=== PATIENT | male | born 1975 ===

== ENCOUNTER 2017-12-05 08:22 | Inpatient (IN) | payer MEDICAID ==
[2017-12-05 08:36] VITALS: BMI 39.1
[2017-12-05 09:06] LABS: BASO % 0.8 % (0.0-2.0); EOS # 0.1 K/uL (0.0-0.7); EOS % 1.5 % (0.0-4.0); HEMOGLOBIN 15.2 g/dL (12.0-18.0); LYMPH # 2.2 K/uL (1.0-4.3); LYMPH % 44.2 % (20.0-40.0); MEAN CELL VOLUME 91.7 fL (80.0-94.0); MEAN CORPUSCULAR HEMOGLOBIN 31.6 pg (27.0-31.0); MEAN CORPUSCULAR HGB CONC 34.4 g/dL (33.0-37.0); MONO # 0.4 K/uL (0.0-0.8); MONO % 8.6 % (0.0-10.0); NEUT # 2.3 K/uL (1.8-7.0); NEUT % 44.9 % (50.0-75.0); NRBC % 0.2 % (0.0-2.0); RBC 4.8 Mil/uL (4.40-5.90); RED CELL DISTRIBUTION WIDTH 13.1 % (11.5-14.5)
[2017-12-05 09:16] LABS: ALB/GLOB RATIO 1.1 (1.0-2.1); ALBUMIN 3.9 g/dL (3.5-5.0); ALT/SGPT 35 U/L (21-72); AST/SGOT 26 U/L (17-59); BLOOD UREA NITROGEN 12 mg/dL (9-20); GFR AFRICAN-AMERICAN > 60; GFR NON-AFRICAN AMERICAN > 60
[2017-12-05 09:41] LABS: SQUAMOUS EPITHIAL < 1 /hpf (0-5); URINE BILIRUBIN NEGATIVE (NEGATIVE); URINE BLOOD NEGATIVE (NEGATIVE); URINE CLARITY Clear (Clear); URINE COLOR Yellow (YELLOW); URINE GLUCOSE (UA) NORMAL (Normal); URINE LEUKOCYTE ESTERASE NEG Leu/uL (Negative); URINE PROTEIN NEGATIVE (NEGATIVE); URINE UROBILINOGEN NORMAL mg/dL (0.2-1.0)
--- NOTE | 2017-12-05 09:43 | C.PDOC ---
History Of Present Illness 42-year-old male, presents to the emergency department with complaints of non- traumatic achEy pain to bilateral lower extremities, as well as feeling depressed with suicidal ideations - denies specific plan. Patient admits to history of alcohol abuse. Denies HI or other physical complaints. Time Seen by Provider: 12/05/17 08:26 Chief Complaint (Nursing): Psychiatric Evaluation History Per: Patient History/Exam Limitations: no limitations Current Symptoms Are (Timing): Still Present Modifying Factor(s): Alcohol Associated Symptoms: Depression, Suicidal Thoughts. denies: Suicidal Plan Involuntary Hold By: Emergency Physician Past Medical History Reviewed: Historical Data, Nursing Documentation, Vital Signs Vital Signs: Last Vital Signs Temp 98.1 F 12/08/17 06:39 Pulse 91 H 12/08/17 06:39 Resp 18 12/08/17 06:39 BP 112/75 12/08/17 06:39 Pulse Ox 99 12/08/17 09:05 - Medical History PMH: Anxiety, Asthma, Bipolar Disorder, Depression, HTN, Hypercholesterolemia, Paranoia, Schizophrenia - [facility] Procedures INDIVID PSYCHOTHERAP NEC (03/04/14) INDIVIDUAL PSYCHOTHERAPY, SUPPORTIVE (06/27/17) INJECT/INFUSE NEC (03/31/13) NEBULIZER THERAPY (03/31/13) OTHER GROUP THERAPY (02/01/14) Family History: States: No Known Family Hx - Social History Hx Tobacco Use: No Hx Alcohol Use: No Hx Substance Use: No - Immunization History Hx Tetanus Toxoid Vaccination: No Hx Influenza Vaccination: No Hx Pneumococcal Vaccination: No Review Of Systems Constitutional: Negative for: Fever, Chills Cardiovascular: Negative for: Chest Pain, Palpitations Respiratory: Negative for: Cough, Shortness of Breath Gastrointestinal: Negative for: Nausea, Vomiting, Abdominal Pain, Diarrhea Musculoskeletal: Positive for: Leg Pain Neurological: Negative for: Weakness, Numbness, Headache Psych: Positive for: Depression, Suicidal ideation Physical Exam - Physical Exam Appears: Well, Non-toxic, No Acute Distress, Other (flat affect) Skin: Normal Color, Warm, Dry, No Rash Head: Atraumatic, Normacephalic Eye(s): bilateral: Normal Inspection Oral Mucosa: Moist Neck: Normal, Normal ROM Chest: Symmetrical Cardiovascular: Rhythm Regular Respiratory: Normal Breath Sounds, No Rales, No Rhonchi, No Wheezing Extremity: Normal ROM, No Pedal Edema, No Calf Tenderness, No Deformity, No Swelling Extremity: Bilateral: Atraumatic, Normal Color And Temperature, Normal ROM Pulses: Left Dorsalis Pedis: Normal, Right Dorsalis Pedis: Normal Neurological/Psych: Oriented x3 ED Course And Treatment - Laboratory Results Result Diagrams: 12/05/17 08:58 12/05/17 08:58 O2 Sat by Pulse Oximetry: 99 (RA) Pulse Ox Interpretation: Normal Progress Note: Blood work, UA, UDS ordered and reviewed. 9:40am- Patient is calm and cooperative, expressed thoughts of hurting himself but without specific plan. Will d/c 1:1 observation at this time. 10:30am- Patient medically cleared. 10:40am- Patient accepted by Dr. Mcclain for psychiatric admission - bipolar disorder. Disposition - Disposition Disposition: HOSPITALIZED Disposition Time: 10:40 Condition: STABLE - Clinical Impression Clinical Impression: Bipolar disorder - Scribe Statement The provider has reviewed the documentation as recorded by the Scribe (Brenda Gonzalez) All medical record entries made by the Scribe were at my direction and personally dictated by me. I have reviewed the chart and agree that the record accurately reflects my personal performance of the history, physical exam, medical decision making, and the department course for this patient. I have also personally directed, reviewed, and agree with the discharge instructions and disposition. Decision To Admit - Pt Status Changed To: Hospital Disposition Of: Inpatient - Admit Certification Admit to Inpatient:: After my assessment, the patient will require hospitalization for at least two midnights. This is because of the severity of symptoms shown, intensity of services needed, and/or the medical risk in this patient being treated as an outpatient. - InPatient: Physician Admission Certification: I certify that this patient requires 2 or more midnights of care for the following reason:: see notes - . Bed Request Type: Psychiatry Admitting Physician: Mook Mcclain Patient Diagnosis: Bipolar disorder
[2017-12-05 10:11] LABS: BARBITURATES, UR NEGATIVE (NEGATIVE); BENZODIAZEPINES, UR NEGATIVE (NEGATIVE); OPIATES, UR NEGATIVE (NEGATIVE); PHENCYCLIDINE, UR NEGATIVE (NEGATIVE)
--- NOTE | 2017-12-05 12:32 | PCM.BM ---
<Candis Faustn - Last Filed: 12/05/17 12:29> Treatment Plan Problems - Problems identified on initial assessmt Depression Date Initiated: 12/05/17 Time Initiated: 12:29 Assessment reference: NA Status: Active Suicidal Ideation Date Initiated: 12/05/17 Time Initiated: 12:30 Assessment reference: NA Status: Monitor Treatment assets and liabiliti Patient Assests: cooperative, ADL independent, physically healthy, good support system, negotiates basic needs Patient Liabilities: live alone, financial problems, poor support system - Milieu Protocol Maintain good personal hygiene: daily Encourage regular showers, daily Remind patient to perform daily oral care, daily Assist patient to perform ADL's Conduct patient checks and document Observation sheet: Q15 minutes Maintain personal safety: every shift Educate patient to report safety concerns to staff, every shift Monitor environment for contraband/sharps Medication safety: Monitor for expected outcome, potential side effects: every shift, Assess barriers to learning: every shift, Assess readiness for medication education: every shift <Mook Mcclain - Last Filed: 12/06/17 11:28> - Diagnosis (1) Schizoaffective disorder Status: Acute Interventions: 12/06/17 11:28 * Assess/adjust medications daily and /or as needed * See patient on an individual basis 7x/week to assess status of hallucinations * Discuss risks, benefits, side effects and alternatives of medications * <Iva Barajas - Last Filed: 12/06/17 11:36> Family Contact Family involvement: Famliy/SO not involved - Goals for Treatment Patient goals for treatment: "I want to go back to [facility]" Discharge/Continuing Care - Education Needs Education Needs: Patient Medication, Patient Coping Skills - Discharge Discharge Criteria: Tolerates medication w/o severe side effects, Free of Suicidal thoughts, Reduction of target symptoms Discharge to:: Custodial - Treatment Team Participation Discussed with Family/SO: No Was Patient/Family/SO present at Treatment Team Meeting: Yes
--- NOTE | 2017-12-05 13:33 | PCM.PSYCH ---
Initial Psychiatric Evaluation - Initial Psychiatric Evaluation Type of Admission: Voluntary Legal Status: Capacity Chief Complaint (in patient's own words): CC: "I'm depressed and suicidal" History of Present Illness and Precipitating Events: Patient is a 42 year old male with a history of Bipolar Disorder and Schizophrenia who presents with depression and suicidal ideation. Patient lives in a intermediate, and is single with no children. He is currently unemployed. Patient has had depression since age 14, and was diagnosed with Bipolar Disorder and Schizophrenia ten years ago. Patient reports feelings of depression , hopelessness, anxiety, insomnia, fatigue, irritability, racing thoughts, violent thoughts, auditory hallucinations (both male and female voices, telling patient to kill himself) and visual hallucinations (devils, demons) for the past month, and paranoia. Patient reports suicidal ideation, and states that he has a history of suicide attempts. He reports that his last psychiatric hospitalization was "5 to 6 years ago," when he was hospitalized following a suicide attempt with Trazodone, and before that, "7 to 8 years ago", following a suicide attempt with Amitriptyline. Prior to this most recent hospitalization , patient was having suicidal ideation and was planning on overdosing on Seroquel. Patient states he has a history of alcohol and cocaine use. Patient began using alcohol at age 14, and states that he drinks 1 pint of vodka/day, and 3 16oz beers/day. Patient began using cocaine at age 18, and uses 1-2grams/month. Patient began using crack cocaine in his twenties, and uses twice per week. Patient has also been using marijuana, infrequently, since age 17. PMH: Anxiety, Asthma, HTN, Hypercholesterolemia Past Psychiatric Hx: Bipolar Disorder, Schizophrenia Past Psychiatric History - Past Psychiatric History Previous Treatment History: Inpatient Pertinent Medical Hx (Current Medical&Sleep Prob, Allergies): Allergies Allergy/AdvReac Type Severity Reaction Status Date / Time divalproex sodium Allergy Verified 12/05/17 08:35 [From Depakote] haloperidol [From Haldol] Allergy Verified 12/05/17 08:35 haloperidol lactate Allergy Verified 12/05/17 08:35 [From Haldol] risperidone [From Risperdal] Allergy Verified 12/05/17 08:35 ziprasidone HCl [From Geodon] Allergy Verified 12/05/17 08:35 ziprasidone mesylate Allergy Verified 12/05/17 08:35 [From Geodon] QUEtiapine [Seroquel] 100 mg PO BIDHS tab 08/25/16 Benztropine [Cogentin] 1 mg PO HS #30 tab 07/04/17 Citalopram [celEXA] 20 mg PO DAILY #30 tab 07/04/17 [place] Carbonate [[place] Carbonate 150MG] 450 mg PO BID #60 cap 07/04/17 traZODone [Desyrel] 50 mg PO HS #30 tab 07/04/17 Review of Systems - Constitutional Constitutional: Weakness - Psychiatric Psychiatric: Abnormal Sleep Pattern, Anxiety, Auditory Hallucinations, Depression, Hallucinations, Hopelessness, Irritability, Paranoia, Suicidal Ideation, Visual Hallucinations Mental Status Examination - Personal Presentation Personal Presentation: Looks stated age - Affect Affect: Constricted, Depressed - Motor Activity Motor Activity: Calm - Reliability in Providing Information Reliability in Providing Information: Poor, due to alteration in thoughts, Poor , due to altered mood - Speech Speech: Disorganized - Mood Mood: Depressed, Anxious - Formal Thought Process Formal Thought Process: Hallucinations, Delusions, Loosening of associations, Circumstantial - Hallucinations/Delusions Hallucinations: Visual, Auditory Delusions: Persecution - Obsessions/Compulsions Obsessions: No Compulsions: No - Cognitive Functions Orientation: Person, Place, Situation, Time Sensorium: Alert Attention/Concentration: Attentive Abstract Thinking: [place] Estimate of Intelligence: Below average Judgement: Imparied, as evidence by: Poor judgement, Imparied, as evidence by: Lack of insight into illness Memory: Recent intact, as evidence by: Ability to recall events of the day, Remote intact, as evidenced by: Abilit to recall sig. life events - Risk Risk: Suicidal, Diminished functioning - Strength & Assets Inventory Strength & Assets Inventory: Family support, Cooperative DSM 5 DX - DSM 5 DSM 5 Diagnosis: Schizo affective disorder bipolar type - Recommended/Plan of Treatment Treatment Recommendations and Plan of Treatment: Schizo affective disorder bipolar type -CBT -Psychoeducation -Supportive therapy, group therapy, individual therapy -Celexa 20 mg daily -[place] 300 mg by mouth twice a day -Seroquel 100 mg by mouth daily at bedtime -Trazodone 50 mg by mouth daily at bedtime - Smoking Cessation Smoking Cessation Initiated: No
[2017-12-07] MEDS ORDERED: Pneumococcal 23-Valent Vaccine IM ONE (10:00)
--- NOTE | 2017-12-07 16:24 | PCM.PYCHPN ---
Psychiatric Progress Note - Psychiatric Progress Note Patient seen today, length of contact: 15 min Patient Chief Complaint: CC: "I'm depressed and suicidal" Problems Identified/Issues Discussed: Patient seen and evaluated, chart reviewed and discussed with the nurse. Patient remained disorganized and internally preoccupied. Patient remained isolated, confined and withdrawn. He still reports of hearing voices. Patient still appears paranoid and delusional. He reports depressed mood and feelings of hopelessness and helplessness. He is taking medication and denies any side effects. Supportive therapy and psychoeducation were given. Medication Change: Yes Medical Record Reviewed: Yes Mental Status Examination - Cognitive Function Orientation: Person, Place, Situation, Time Memory: Intact Attention: WNL Concentration: Poor Association: Loose Fund of Knowledge: Poor - Mood Mood: Depressed, Anxious - Affect Affect: Constricted, Depressed - Formal Thought Process Formal Thought Process: Hallucinations, Delusions, Loosening of associations, Circumstantial - Suicidal Ideation Suicidal Ideation: No - Homicidal Ideation Homicidal Ideation: No Goal/Treatment Plan - Goal/Treatment Plan Need for Continued Stay: Severe depression anxiety, Severe functional impairment Progress Toward Problem(s) and Goals/Treatment Plan: Schizo affective disorder bipolar type -CBT -Psychoeducation -Supportive therapy, group therapy, individual therapy -Celexa 20 mg daily -[place] 300 mg by mouth twice a day -Seroquel 100 mg by mouth daily at bedtime -Trazodone 50 mg by mouth daily at bedtime - Smoking Cessation Smoking Cessation Initiated: No
--- NOTE | 2017-12-07 16:26 | PCM.PYCHPN ---
Psychiatric Progress Note - Psychiatric Progress Note Patient seen today, length of contact: 15 min Patient Chief Complaint: CC: "I'm feeling a little better" Problems Identified/Issues Discussed: Patient seen and evaluated, chart reviewed and discussed with the nurse. Patient remained isolated, confined and withdrawn. He still reports of hearing voices. Patient still appears paranoid and internally preoccupied. He reports depressed mood but reports some improvement in the feelings of hopelessness and helplessness. He is taking medication and denies any side effects. Symptoms are improving but he needs more time for stabilization. Supportive therapy and psychoeducation were given. Medication Change: Yes Medical Record Reviewed: Yes Mental Status Examination - Cognitive Function Orientation: Person, Place, Situation, Time Memory: Intact Attention: WNL Concentration: Poor Association: Loose Fund of Knowledge: Poor - Mood Mood: Depressed, Anxious - Affect Affect: Constricted, Depressed - Formal Thought Process Formal Thought Process: Hallucinations, Delusions, Loosening of associations, Circumstantial - Suicidal Ideation Suicidal Ideation: No - Homicidal Ideation Homicidal Ideation: No Goal/Treatment Plan - Goal/Treatment Plan Need for Continued Stay: Severe depression anxiety, Severe functional impairment Progress Toward Problem(s) and Goals/Treatment Plan: Schizo affective disorder bipolar type -CBT -Psychoeducation -Supportive therapy, group therapy, individual therapy -Celexa 20 mg daily -[place] 300 mg by mouth twice a day -Seroquel 200 mg by mouth daily at bedtime -Trazodone 50 mg by mouth daily at bedtime - Smoking Cessation Smoking Cessation Initiated: No
--- NOTE | 2017-12-08 10:09 | PCM.PYCHPN ---
Psychiatric Progress Note - Psychiatric Progress Note Patient seen today, length of contact: 15 min Patient Chief Complaint: CC: "I'm feeling a little better" Problems Identified/Issues Discussed: Patient seen and evaluated, chart reviewed and discussed with the nurse. Patient started coming out of his room. But he remained isolative and withdrawn. He still reports of hearing voices. Patient still appears paranoid and internally preoccupied. He reports depressed mood but reports some improvement in the feelings of hopelessness and helplessness. He is taking medication and denies any side effects. Symptoms are improving but he needs more time for stabilization. Supportive therapy and psychoeducation were given. Medication Change: Yes Medical Record Reviewed: Yes Mental Status Examination - Cognitive Function Orientation: Person, Place, Situation, Time Memory: Intact Attention: WNL Concentration: Poor Association: Loose Fund of Knowledge: Poor - Mood Mood: Depressed, Anxious - Affect Affect: Constricted, Depressed - Formal Thought Process Formal Thought Process: Hallucinations, Delusions, Loosening of associations, Circumstantial - Suicidal Ideation Suicidal Ideation: No - Homicidal Ideation Homicidal Ideation: No Goal/Treatment Plan - Goal/Treatment Plan Need for Continued Stay: Severe depression anxiety, Severe functional impairment Progress Toward Problem(s) and Goals/Treatment Plan: Schizo affective disorder bipolar type -CBT -Psychoeducation -Supportive therapy, group therapy, individual therapy -Celexa 20 mg daily -[place] 300 mg by mouth twice a day -Seroquel 200 mg by mouth daily at bedtime -Trazodone 50 mg by mouth daily at bedtime - Smoking Cessation Smoking Cessation Initiated: No
--- NOTE | 2017-12-09 16:08 | PCM.PYCHPN ---
Psychiatric Progress Note - Psychiatric Progress Note Patient seen today, length of contact: 15 min Patient Chief Complaint: "I'm still depressed" Problems Identified/Issues Discussed: Patient was seen. Chart was reviewed important content noted. Nurse input received. Patient has no new complaints. No events overnight. Patient slept well and is eating well. Patient reported he has depressive symptoms. However, he denies suicidal or homicidal ideations. Patient reported he had auditory hallucinations. No paranoid delusions elicited. Patient symptoms are improving, but needs more time to stabilize. DSM 5 Symptoms Update: Schizoaffective disorder Medication Change: Yes Medical Record Reviewed: Yes Mental Status Examination - Cognitive Function Orientation: Person, Place, Situation, Time Memory: Intact Attention: WNL Concentration: Poor Association: Loose Fund of Knowledge: Poor Decription of patient's judgement and insights: fair/fair - Mood Mood: Depressed, Anxious - Affect Affect: Constricted, Depressed - Speech Speech: Appropriate - Formal Thought Process Formal Thought Process: Hallucinations, Delusions, Loosening of associations, Circumstantial - Suicidal Ideation Suicidal Ideation: No Plan: denied - Homicidal Ideation Homicidal Ideation: No Plan: denied Goal/Treatment Plan - Goal/Treatment Plan Need for Continued Stay: Severe depression anxiety, Severe functional impairment Progress Toward Problem(s) and Goals/Treatment Plan: Continue current treatment as per primary team. Psychoeducation provided regarding diagnosis, treatment, meds benefits, side effects, risk and alternative choices. Pt verbalized understanding and agree with the treatment plan. Continue current management and medications. Patient educated about risks, benefits, side effects & alternatives of meds. Pt verbalized understanding & agreed with the above. Therapy in milieu Estimated Date of D/C: 12/12/17
--- NOTE | 2017-12-10 17:07 | PCM.PYCHPN ---
Psychiatric Progress Note - Psychiatric Progress Note Patient seen today, length of contact: 15 min Patient Chief Complaint: "I'm getting better" Problems Identified/Issues Discussed: Patient was seen. Chart was reviewed important content noted. Nurse input received. Patient has no new complaints. No events overnight. Pt is still isolated to himself and not attending groups or other meetings. Patient slept well and is eating well. Patient reported he has depressive symptoms. However, he denies suicidal or homicidal ideations. Patient reported he had auditory hallucinations. No paranoid delusions elicited. Patient symptoms are improving, but needs more time to stabilize. Medication Change: Yes Medical Record Reviewed: Yes Mental Status Examination - Cognitive Function Orientation: Person, Place, Situation, Time Memory: Intact Attention: WNL Concentration: Poor Association: Loose Fund of Knowledge: Poor Decription of patient's judgement and insights: fair/fair Addtional comments: cooperative - Mood Mood: Depressed - Affect Affect: Constricted, Depressed - Speech Speech: Appropriate - Formal Thought Process Formal Thought Process: Hallucinations, Delusions, Circumstantial - Suicidal Ideation Suicidal Ideation: No Plan: Denied - Homicidal Ideation Homicidal Ideation: No Plan: Denied Goal/Treatment Plan - Goal/Treatment Plan Need for Continued Stay: Severe depression anxiety, Severe functional impairment Progress Toward Problem(s) and Goals/Treatment Plan: Continue current treatment as per primary team. Psychoeducation provided regarding diagnosis, treatment, meds benefits, side effects, risk and alternative choices. Pt verbalized understanding and agree with the treatment plan. Continue current management and medications. Patient educated about risks, benefits, side effects & alternatives of meds. Pt verbalized understanding & agreed with the above. Therapy in milieu Estimated Date of D/C: 12/12/17
--- NOTE | 2017-12-11 15:10 | PCM.PYCHPN ---
Psychiatric Progress Note - Psychiatric Progress Note Patient seen today, length of contact: 15 min Patient Chief Complaint: CC: "I'm feeling a little better" Problems Identified/Issues Discussed: Patient seen and evaluated, chart reviewed and discussed with the nurse. Patient started coming out of his room. But he remained isolative and withdrawn. He still reports of hearing voices. Patient still appears paranoid and internally preoccupied. He reports depressed mood but reports some improvement in the feelings of hopelessness and helplessness. He is taking medication and denies any side effects. Symptoms are improving but he needs more time for stabilization. Supportive therapy and psychoeducation were given. Medication Change: Yes Medical Record Reviewed: Yes Mental Status Examination - Cognitive Function Orientation: Person, Place, Situation, Time Memory: Intact Attention: WNL Concentration: Poor Association: Loose Fund of Knowledge: Poor - Mood Mood: Depressed - Affect Affect: Constricted, Depressed - Speech Speech: Appropriate - Formal Thought Process Formal Thought Process: Hallucinations, Delusions, Circumstantial - Suicidal Ideation Suicidal Ideation: No - Homicidal Ideation Homicidal Ideation: No Goal/Treatment Plan - Goal/Treatment Plan Need for Continued Stay: Severe depression anxiety, Severe functional impairment Progress Toward Problem(s) and Goals/Treatment Plan: Schizo affective disorder bipolar type -CBT -Psychoeducation -Supportive therapy, group therapy, individual therapy -Celexa 20 mg daily -[place] 300 mg by mouth twice a day -Seroquel 200 mg by mouth daily at bedtime -Trazodone 50 mg by mouth daily at bedtime Estimated Date of D/C: 12/12/17
--- NOTE | 2017-12-12 10:32 | PCM.PYCHPN ---
Psychiatric Progress Note - Psychiatric Progress Note Patient seen today, length of contact: 15 min Patient Chief Complaint: CC: "I'm feeling a little better" Problems Identified/Issues Discussed: Patient seen and evaluated, chart reviewed and discussed with the nurse. Patient started coming out of his room. But he remained isolative and withdrawn. He still reports of hearing voices. Patient still appears paranoid and internally preoccupied. He reports depressed mood but reports some improvement in the feelings of hopelessness and helplessness. He is taking medication and denies any side effects. Symptoms are improving but he needs more time for stabilization. Supportive therapy and psychoeducation were given. Medication Change: Yes (increase lithium) Medical Record Reviewed: Yes Mental Status Examination - Cognitive Function Orientation: Person, Place, Situation, Time Memory: Intact Attention: WNL Concentration: Poor Association: Loose Fund of Knowledge: Poor - Mood Mood: Depressed - Affect Affect: Constricted, Depressed - Speech Speech: Appropriate - Formal Thought Process Formal Thought Process: Hallucinations, Delusions, Circumstantial - Suicidal Ideation Suicidal Ideation: No - Homicidal Ideation Homicidal Ideation: No Goal/Treatment Plan - Goal/Treatment Plan Need for Continued Stay: Severe depression anxiety, Severe functional impairment Progress Toward Problem(s) and Goals/Treatment Plan: Schizo affective disorder bipolar type -CBT -Psychoeducation -Supportive therapy, group therapy, individual therapy -Celexa 20 mg daily -[place] 300 mg by mouth daily -[place] 600 mg by mouth HS -Seroquel 200 mg by mouth daily at bedtime -Trazodone 50 mg by mouth daily at bedtime Estimated Date of D/C: 12/12/17
--- NOTE | 2017-12-13 09:36 | PCM.BM ---
<JeffIva Dorsey - Last Filed: 12/13/17 09:36> Treatment Plan Problems - Problems identified on initial assessmt Depression Date Initiated: 12/05/17 Time Initiated: 12:29 Assessment reference: NA Status: Active Suicidal Ideation Date Initiated: 12/05/17 Time Initiated: 12:30 Assessment reference: NA Status: Monitor Treatment assets and liabiliti Patient Assests: cooperative, ADL independent, physically healthy, good support system, negotiates basic needs Patient Liabilities: live alone, financial problems, poor support system - Milieu Protocol Maintain good personal hygiene: daily Encourage regular showers, daily Remind patient to perform daily oral care, daily Assist patient to perform ADL's Conduct patient checks and document Observation sheet: Q15 minutes Maintain personal safety: every shift Educate patient to report safety concerns to staff, every shift Monitor environment for contraband/sharps Medication safety: Monitor for expected outcome, potential side effects: every shift, Assess barriers to learning: every shift, Assess readiness for medication education: every shift Milieu Narrative: Schizo affective disorder bipolar type -CBT -Psychoeducation -Supportive therapy, group therapy, individual therapy -Celexa 20 mg daily -[place] 300 mg by mouth twice a day -Seroquel 200 mg by mouth daily at bedtime -Trazodone 50 mg by mouth daily at bedtime Family Contact Family involvement: Famliy/SO not involved - Goals for Treatment Patient goals for treatment: "I want to go back to [facility]." Discharge/Continuing Care - Education Needs Education Needs: Patient Medication, Patient Coping Skills - Discharge Discharge Criteria: Tolerates medication w/o severe side effects, Free of Suicidal thoughts, Reduction of target symptoms Discharge to:: Detention - Treatment Team Participation Patient/Family/SO Statement: Schizo affective disorder bipolar type -CBT -Psychoeducation -Supportive therapy, group therapy, individual therapy -Celexa 20 mg daily -[place] 300 mg by mouth twice a day -Seroquel 200 mg by mouth daily at bedtime -Trazodone 50 mg by mouth daily at bedtime Discussed with Family/SO: No Was Patient/Family/SO present at Treatment Team Meeting: Yes Treatment Plan Review - Problem Depression Time Initiated: 12:29 Suicidal Ideation Time Initiated: 12:30 - Discharge / Continuing Care Discharge to:: Detention [facility] Services: Partial hospital Health Needs: Medications/Rx <Mook Mcclain - Last Filed: 12/13/17 11:23> - Diagnosis (1) Schizoaffective disorder Status: Acute Interventions: 12/13/17 11:23 * Assess/adjust medications daily and /or as needed * See patient on an individual basis 7x/week to assess status of hallucinations * Discuss risks, benefits, side effects and alternatives of medications * <Rajni Gordon - Last Filed: 12/13/17 13:08> Treatment Plan Review - Problem Depression Date Initiated: 12/13/17 Time Initiated: 13:08 Progress toward outcomes: improved Suicidal Ideation Date Initiated: 12/13/17 Time Initiated: 13:08 Progress toward outcomes: resolved
--- NOTE | 2017-12-13 11:23 | PCM.PYCHPN ---
Psychiatric Progress Note - Psychiatric Progress Note Patient seen today, length of contact: 15 min Patient Chief Complaint: CC: "I'm feeling a little better" Problems Identified/Issues Discussed: 42 year old male, presents to the ED with complains of non-traumatic achy pain to bilateral lower extremities, as well as feeling depressed with suicidal ideations denies specific plan. Patient seen and evaluated, chart reviewed and discussed with nurse. Patient starting coming out of his room. But he remained isolative and withdrawn. He still reports hearing voices. Patient still appears paranoid and internally preoccupied. He reports depressed mood but reports some improvement in the feelings of hopelessness and helplessness. He is taking medication and denies any side effects Symptoms are improving but he needs more time for stabilization. Supportive therapy and psychoeducation were given. Medication Change: Yes (Increase celexa) Medical Record Reviewed: Yes Mental Status Examination - Cognitive Function Orientation: Person, Place, Situation, Time Memory: Intact Attention: WNL Concentration: WNL Association: Loose Fund of Knowledge: Poor - Mood Mood: Depressed - Affect Affect: Constricted, Depressed - Speech Speech: Appropriate - Formal Thought Process Formal Thought Process: Hallucinations, Delusions - Suicidal Ideation Suicidal Ideation: No - Homicidal Ideation Homicidal Ideation: No Goal/Treatment Plan - Goal/Treatment Plan Need for Continued Stay: Severe depression anxiety, Severe functional impairment Progress Toward Problem(s) and Goals/Treatment Plan: Schizo affective disorder bipolar type -CBT -Psychoeducation -Supportive therapy, group therapy, individual therapy -Celexa 40 mg daily -[place] 300 mg by mouth daily -[place] 600 mg by mouth HS -Seroquel 300 mg by mouth daily at bedtime -Trazodone 50 mg by mouth daily at bedtime Estimated Date of D/C: 12/12/17
--- NOTE | 2017-12-14 14:29 | PCM.PYCHPN ---
Psychiatric Progress Note - Psychiatric Progress Note Patient seen today, length of contact: 15 min Patient Chief Complaint: CC: "I'm feeling a little better" Problems Identified/Issues Discussed: 42 year old male, presents to the ED with complains of non-traumatic achy pain to bilateral lower extremities, as well as feeling depressed with suicidal ideations denies specific plan. Patient seen and evaluated, chart reviewed and discussed with nurse. Patient starting coming out of his room. But he remained isolative and withdrawn. He still reports hearing voices. Patient still appears paranoid and internally preoccupied. He reports depressed mood but reports some improvement in the feelings of hopelessness and helplessness. He is cooperative with the nursing staff and treatment plan that is in place. He is slowly progressing at the moment. He is taking medication and denies any side effects Symptoms are improving but he needs more time for stabilization. Supportive therapy and psychoeducation were given. Medication Change: Yes Medical Record Reviewed: Yes Mental Status Examination - Cognitive Function Orientation: Person, Place, Situation, Time Memory: Intact Attention: WNL Concentration: Poor Association: Loose Fund of Knowledge: Poor - Mood Mood: Depressed - Affect Affect: Constricted, Depressed - Speech Speech: Appropriate - Formal Thought Process Formal Thought Process: Hallucinations, Delusions, Circumstantial - Suicidal Ideation Suicidal Ideation: No - Homicidal Ideation Homicidal Ideation: No Goal/Treatment Plan - Goal/Treatment Plan Need for Continued Stay: Severe depression anxiety, Severe functional impairment Progress Toward Problem(s) and Goals/Treatment Plan: Schizo affective disorder bipolar type -CBT -Psychoeducation -Supportive therapy, group therapy, individual therapy -Celexa 20 mg daily -[place] 300 mg by mouth twice a day -Seroquel 200 mg by mouth daily at bedtime -Trazodone 50 mg by mouth daily at bedtime Estimated Date of D/C: 12/12/17
--- NOTE | 2017-12-15 11:12 | PCM.PYCHPN ---
Psychiatric Progress Note - Psychiatric Progress Note Patient seen today, length of contact: 15 min Patient Chief Complaint: CC: "I'm feeling a little better" Problems Identified/Issues Discussed: 42 year old male, presents to the ED with complains of non-traumatic achy pain to bilateral lower extremities, as well as feeling depressed with suicidal ideations denies specific plan. Patient seen and evaluated, chart reviewed and discussed with nurse. Patient starting coming out of his room. But he remained isolative and withdrawn. He still reports hearing voices. Patient still appears paranoid and internally preoccupied. He reports depressed mood but reports some improvement in the feelings of hopelessness and helplessness. He is slowly progressing at the moment. Patient cannot describe what the voices are saying to him. He state he fears the voices he hears. He is taking medication and denies any side effects Symptoms are improving but he needs more time for stabilization. Supportive therapy and psychoeducation were given. Medication Change: Yes (Increase celexa) Medical Record Reviewed: Yes Mental Status Examination - Cognitive Function Orientation: Person, Place, Situation, Time Memory: Intact Attention: WNL Concentration: WNL Association: Loose Fund of Knowledge: Poor - Mood Mood: Depressed - Affect Affect: Constricted, Depressed - Speech Speech: Appropriate - Formal Thought Process Formal Thought Process: Hallucinations, Delusions - Suicidal Ideation Suicidal Ideation: No - Homicidal Ideation Homicidal Ideation: No Goal/Treatment Plan - Goal/Treatment Plan Need for Continued Stay: Severe depression anxiety, Severe functional impairment Progress Toward Problem(s) and Goals/Treatment Plan: Schizo affective disorder bipolar type -CBT -Psychoeducation -Supportive therapy, group therapy, individual therapy -Celexa 40 mg daily -[place] 300 mg by mouth daily -[place] 600 mg by mouth HS -Seroquel 300 mg by mouth daily at bedtime -Trazodone 50 mg by mouth daily at bedtime Estimated Date of D/C: 12/12/17
--- NOTE | 2017-12-16 08:02 | PCM.PYCHPN ---
Psychiatric Progress Note - Psychiatric Progress Note Patient seen today, length of contact: 15 min Patient Chief Complaint: CC: "I'm feeling a little better" Problems Identified/Issues Discussed: 42 year old male, presents to the ED with complains of non-traumatic achy pain to bilateral lower extremities, as well as feeling depressed with suicidal ideations denies specific plan. Patient seen and evaluated, chart reviewed and discussed with nurse. Patient starting coming out of his room. But he remained isolative and withdrawn. He still reports hearing voices. Patient still appears paranoid and internally preoccupied. He reports depressed mood but reports some improvement in the feelings of hopelessness and helplessness. He is slowly progressing at the moment. Patient cannot describe what the voices are saying to him. He state he fears the voices he hears. He is taking medication and denies any side effects Symptoms are improving but he needs more time for stabilization. Supportive therapy and psychoeducation were given. Medication Change: Yes (Increase celexa) Medical Record Reviewed: Yes Mental Status Examination - Cognitive Function Orientation: Person, Place, Situation, Time Memory: Intact Attention: WNL Concentration: WNL Association: Loose Fund of Knowledge: Poor - Mood Mood: Depressed - Affect Affect: Constricted, Depressed - Speech Speech: Appropriate - Formal Thought Process Formal Thought Process: Hallucinations, Delusions - Suicidal Ideation Suicidal Ideation: No - Homicidal Ideation Homicidal Ideation: No Goal/Treatment Plan - Goal/Treatment Plan Need for Continued Stay: Severe depression anxiety, Severe functional impairment Progress Toward Problem(s) and Goals/Treatment Plan: Schizo affective disorder bipolar type -CBT -Psychoeducation -Supportive therapy, group therapy, individual therapy -Celexa 40 mg daily -[place] 300 mg by mouth daily -[place] 600 mg by mouth HS -Seroquel 300 mg by mouth daily at bedtime -Trazodone 50 mg by mouth daily at bedtime Estimated Date of D/C: 12/12/17
--- NOTE | 2017-12-17 13:31 | PCM.PYCHPN ---
Psychiatric Progress Note - Psychiatric Progress Note Patient seen today, length of contact: 15 min Patient Chief Complaint: CC: "I'm feeling a little better" Problems Identified/Issues Discussed: 42 year old male, presents to the ED with complains of non-traumatic achy pain to bilateral lower extremities, as well as feeling depressed with suicidal ideations denies specific plan. Patient seen and evaluated, chart reviewed and discussed with nurse. Patient starting coming out of his room. But he remained isolative and withdrawn. He still reports hearing voices. Patient still appears paranoid and internally preoccupied. He reports depressed mood but reports some improvement in the feelings of hopelessness and helplessness. He is slowly progressing at the moment. Patient cannot describe what the voices are saying to him. He state he fears the voices he hears. He is taking medication and denies any side effects Symptoms are improving but he needs more time for stabilization. Supportive therapy and psychoeducation were given. Medication Change: Yes (Increase celexa) Medical Record Reviewed: Yes Mental Status Examination - Cognitive Function Orientation: Person, Place, Situation, Time Memory: Intact Attention: WNL Concentration: WNL Association: Loose Fund of Knowledge: Poor - Mood Mood: Depressed - Affect Affect: Constricted, Depressed - Speech Speech: Appropriate - Formal Thought Process Formal Thought Process: Hallucinations, Delusions - Suicidal Ideation Suicidal Ideation: No - Homicidal Ideation Homicidal Ideation: No Goal/Treatment Plan - Goal/Treatment Plan Need for Continued Stay: Severe depression anxiety, Severe functional impairment Progress Toward Problem(s) and Goals/Treatment Plan: Schizo affective disorder bipolar type -CBT -Psychoeducation -Supportive therapy, group therapy, individual therapy -Celexa 40 mg daily -[place] 300 mg by mouth daily -[place] 600 mg by mouth HS -Seroquel 300 mg by mouth daily at bedtime -Trazodone 50 mg by mouth daily at bedtime Estimated Date of D/C: 12/12/17
--- NOTE | 2017-12-18 10:14 | PCM.PYCHPN ---
Psychiatric Progress Note - Psychiatric Progress Note Patient seen today, length of contact: 15 min Patient Chief Complaint: CC: "I'm feeling a little better" Problems Identified/Issues Discussed: 42 year old male, presents to the ED with complains of non-traumatic achy pain to bilateral lower extremities, as well as feeling depressed with suicidal ideations denies specific plan. Patient seen and evaluated, chart reviewed and discussed with nurse. Patient starting coming out of his room. But he remained isolative and withdrawn. He still reports hearing voices. Patient still appears paranoid and internally preoccupied. He reports depressed mood but reports some improvement in the feelings of hopelessness and helplessness. He is slowly progressing at the moment. Patient cannot describe what the voices are saying to him. He state he fears the voices he hears. He is taking medication and denies any side effects Symptoms are improving but he needs more time for stabilization. Supportive therapy and psychoeducation were given. Medication Change: Yes (Increase celexa) Medical Record Reviewed: Yes Mental Status Examination - Cognitive Function Orientation: Person, Place, Situation, Time Memory: Intact Attention: WNL Concentration: WNL Association: Loose Fund of Knowledge: Poor - Mood Mood: Depressed - Affect Affect: Constricted, Depressed - Speech Speech: Appropriate - Formal Thought Process Formal Thought Process: Hallucinations, Delusions - Suicidal Ideation Suicidal Ideation: No - Homicidal Ideation Homicidal Ideation: No Goal/Treatment Plan - Goal/Treatment Plan Need for Continued Stay: Severe depression anxiety, Severe functional impairment Progress Toward Problem(s) and Goals/Treatment Plan: Schizo affective disorder bipolar type -CBT -Psychoeducation -Supportive therapy, group therapy, individual therapy -Celexa 40 mg daily -[place] 300 mg by mouth daily -[place] 600 mg by mouth HS -Seroquel 300 mg by mouth daily at bedtime -Trazodone 50 mg by mouth daily at bedtime Estimated Date of D/C: 12/12/17
[2017-12-19 09:17] VITALS: BP 113/66; PULSE 70; RESP 18; TEMP 98.6; O2SAT 98
--- NOTE | 2017-12-19 10:02 | PCM.PYCHDC ---
Mental Status Examination - Mental Status Examination Orientation: Person, Place, Situation, Time Memory: Intact Mood: Neutral Affect: Constricted Speech: Soft Attention: WNL Concentration: WNL Association: WNL Fund of Knowledge: WNL Formal Thought Process: No Impairment Description of patient's judgement and insight: good, fair Psychotic Thoughts and Behaviors: denies any AVH Suicidal Ideation: No Current Homicidal Ideation?: No Discharge Summary - Discharge Note Reason for Hospitalization: Patient is a 42 year old male with a history of Bipolar Disorder and Schizophrenia who presents with depression and suicidal ideation. Patient lives in a jail, and is single with no children. He is currently unemployed. Patient has had depression since age 14, and was diagnosed with Bipolar Disorder and Schizophrenia ten years ago. Patient reports feelings of depression , hopelessness, anxiety, insomnia, fatigue, irritability, racing thoughts, violent thoughts, auditory hallucinations (both male and female voices, telling patient to kill himself) and visual hallucinations (devils, demons) for the past month, and paranoia. Patient reports suicidal ideation, and states that he has a history of suicide attempts. He reports that his last psychiatric hospitalization was "5 to 6 years ago," when he was hospitalized following a suicide attempt with Trazodone, and before that, "7 to 8 years ago", following a suicide attempt with Amitriptyline. Prior to this most recent hospitalization , patient was having suicidal ideation and was planning on overdosing on Seroquel. Patient states he has a history of alcohol and cocaine use. Patient began using alcohol at age 14, and states that he drinks 1 pint of vodka/day, and 3 16oz beers/day. Patient began using cocaine at age 18, and uses 1-2grams/month. Patient began using crack cocaine in his twenties, and uses twice per week. Patient has also been using marijuana, infrequently, since age 17. Consultations:: List each consultation separately and include: 1. Reason for request. 2. Findings. 3. Follow-up Summary of Hospital Course include:: 1. Description of specific treatment plan utilized for patients during their course of treatmen. 2. Summarize the time- course for resolution of acute symptoms and/or regressed behaviors. 3. Describe issues identified and worked on during hospitalization. 4. Describe medication utilized. 5. Describe medical problems identified and treated. 6. Reassessment of suicide risk Summary of Hospital Course: Patient is a 42 year old male with a history of Bipolar Disorder and Schizophrenia who presents with depression and suicidal ideation. Patient lives in a jail, and is single with no children. He is currently unemployed. Patient has had depression since age 14, and was diagnosed with Bipolar Disorder and Schizophrenia ten years ago. Patient reports feelings of depression , hopelessness, anxiety, insomnia, fatigue, irritability, racing thoughts, violent thoughts, auditory hallucinations (both male and female voices, telling patient to kill himself) and visual hallucinations (devils, demons) for the past month, and paranoia. Patient reports suicidal ideation, and states that he has a history of suicide attempts. He reports that his last psychiatric hospitalization was "5 to 6 years ago," when he was hospitalized following a suicide attempt with Trazodone, and before that, "7 to 8 years ago", following a suicide attempt with Amitriptyline. Prior to this most recent hospitalization , patient was having suicidal ideation and was planning on overdosing on Seroquel. Patient states he has a history of alcohol and cocaine use. Patient began using alcohol at age 14, and states that he drinks 1 pint of vodka/day, and 3 16oz beers/day. Patient began using cocaine at age 18, and uses 1-2grams/month. Patient began using crack cocaine in his twenties, and uses twice per week. Patient has also been using marijuana, infrequently, since age 17. PMH: Anxiety, Asthma, HTN, Hypercholesterolemia Past Psychiatric Hx: Bipolar Disorder, Schizophrenia - Diagnosis (1) Schizoaffective disorder Current Visit: No Status: Acute - Final Diagnosis (DSM 5) Condition upon Discharge: STABLE Disposition: HOME/ ROUTINE Follow-up Treatment Plan: Schizo affective disorder bipolar type -CBT -Psychoeducation -Supportive therapy, group therapy, individual therapy -Celexa 40 mg daily -[place] 300 mg by mouth daily -[place] 600 mg by mouth HS -Seroquel 300 mg by mouth daily at bedtime -Trazodone 50 mg by mouth daily at bedtime Prescriptions/Medication Reconciliation: Citalopram [celEXA] 40 mg PO DAILY #30 tab [place] Carbonate [Mur[place] Carbonate 300MG] 300 mg PO DAILY #30 cap Murphy Carbonate [[place] Carbonate 300MG] 600 mg PO HS #60 cap QUEtiapine [Seroquel] 300 mg PO HS #30 tab
== END 2017-12-19 12:42 | disposition home or self-care (01) | DRG 430 ==
LOC: C.ER 08:22 → C.5E 10:40
PROVIDERS: ADMIT Psychiatry & Neurology Psychiatry; ATTEND Psychiatry & Neurology Psychiatry
PROC: GZHZZZZ Group Psychotherapy (ICD-10-PCS; principal; 2017-12-05)
PROC: GZ58ZZZ Individual Psychotherapy, Cognitive-Behavioral (ICD-10-PCS; 2017-12-05)
PROC: GZ56ZZZ Individual Psychotherapy, Supportive (ICD-10-PCS; 2017-12-05)
DX: F25.0 Schizoaffective disorder, bipolar type (principal); F14.90 Cocaine use, unspecified, uncomplicated; E78.00 Pure hypercholesterolemia, unspecified; F12.90 Cannabis use, unspecified, uncomplicated; F41.8 Other specified anxiety disorders; G47.00 Insomnia, unspecified; I10 Essential (primary) hypertension; J45.909 Unspecified asthma, uncomplicated; R45.851 Suicidal ideations

== ENCOUNTER 2018-01-05 14:54 | Inpatient (IN) | payer MEDICAID ==
[2018-01-05 14:54] VITALS: BMI 39.1
[2018-01-05 15:53] LABS: BASO # 0.1 K/uL (0.0-0.2); BASO % 1.2 % (0.0-2.0); EOS % 0.6 % (0.0-4.0); HEMOGLOBIN 15.1 g/dL (12.0-18.0); LYMPH # 2.2 K/uL (1.0-4.3); LYMPH % 31.3 % (20.0-40.0); MEAN CELL VOLUME 91.2 fL (80.0-94.0); MEAN CORPUSCULAR HEMOGLOBIN 31.4 pg (27.0-31.0); MEAN CORPUSCULAR HGB CONC 34.4 g/dL (33.0-37.0); MONO # 0.4 K/uL (0.0-0.8); MONO % 4.9 % (0.0-10.0); NEUT # 4.4 K/uL (1.8-7.0); NRBC % 0.1 % (0.0-2.0); RBC 4.8 Mil/uL (4.40-5.90); RED CELL DISTRIBUTION WIDTH 13.8 % (11.5-14.5); WHITE BLOOD COUNT 7.2 K/uL (4.8-10.8)
[2018-01-05 16:02] LABS: ALB/GLOB RATIO 1.3 (1.0-2.1); ALBUMIN 4.5 g/dL (3.5-5.0); ALT/SGPT 33 U/L (21-72); AST/SGOT 24 U/L (17-59); BLOOD UREA NITROGEN 9 mg/dL (9-20); CALCIUM 9.1 mg/dl (8.6-10.4); GFR AFRICAN-AMERICAN > 60; GFR NON-AFRICAN AMERICAN > 60
--- NOTE | 2018-01-05 17:10 | C.PDOC ---
History Of Present Illness 42 y/o male with history of Bipolar disorder presents to ED referred for suicidal ideation. Patient denies SI/HI, hallucinations, sob, cp, nausea, vomiting or any other complaints at this time. Time Seen by Provider: 01/05/18 15:23 Chief Complaint (Nursing): Psychiatric Evaluation History Per: Patient History/Exam Limitations: no limitations Onset/Duration Of Symptoms: Days Current Symptoms Are (Timing): Still Present Suicide/Self Injury Attempted (Context): None Modifying Factor(s): None Past Medical History Reviewed: Historical Data, Nursing Documentation, Vital Signs Vital Signs: Last Vital Signs Temp 98.4 F 01/05/18 15:02 Pulse 103 H 01/05/18 15:02 Resp 20 01/05/18 15:02 BP 110/70 01/05/18 15:02 Pulse Ox 96 01/05/18 17:20 - Medical History PMH: Anxiety, Asthma, Bipolar Disorder, Depression, HTN, Hypercholesterolemia, Paranoia, Schizophrenia Surgical History: No Surg Hx - [facility] Procedures GROUP PSYCHOTHERAPY (12/05/17) INDIVID PSYCHOTHERAP NEC (03/04/14) INDIVIDUAL PSYCHOTHERAPY, COGNITIVE-BEHAVIORAL (12/05/17) INDIVIDUAL PSYCHOTHERAPY, SUPPORTIVE (12/05/17) INJECT/INFUSE NEC (03/31/13) NEBULIZER THERAPY (03/31/13) OTHER GROUP THERAPY (02/01/14) Family History: States: No Known Family Hx - Social History Hx Tobacco Use: No Hx Alcohol Use: No Hx Substance Use: No - Immunization History Hx Tetanus Toxoid Vaccination: No Hx Influenza Vaccination: No Hx Pneumococcal Vaccination: No Review Of Systems Constitutional: Negative for: Fever, Chills Cardiovascular: Negative for: Chest Pain Respiratory: Negative for: Cough, Shortness of Breath Gastrointestinal: Negative for: Nausea, Vomiting Skin: Negative for: Rash Psych: Negative for: Suicidal ideation Physical Exam - Physical Exam Appears: Non-toxic, No Acute Distress, Other (obese) Skin: Warm, Dry, No Rash Head: Atraumatic, Normacephalic Eye(s): bilateral: Normal Inspection Oral Mucosa: Moist Neck: Normal ROM, Supple Cardiovascular: Rhythm Regular Respiratory: Normal Breath Sounds, No Rales, No Rhonchi, No Wheezing Gastrointestinal/Abdominal: Soft, No Tenderness, No Guarding, No Rebound Neurological/Psych: Oriented x3, Normal Speech, Normal Cognition ED Course And Treatment - Laboratory Results Result Diagrams: 01/05/18 15:44 01/05/18 15:44 Lab Interpretation: Abnormal (etoh 212, tox Pending.) O2 Sat by Pulse Oximetry: 96 (RA) Reevaluation Time: 19:00 Reassessment Condition: Improved Medical Decision Making Medical Decision Making: d/w Crisis 183 pending results of U-tox and dispo will sign over to overnight MD pending dispo Disposition - Disposition Disposition Time: 19:00 Condition: GOOD Forms: [facility] (Ukrainian) - Clinical Impression Clinical Impression: Bipolar disorder, Suicidal ideation - Scribe Statement The provider has reviewed the documentation as recorded by the Scribe Chapo Manuel All medical record entries made by the Scribe were at my direction and personally dictated by me. I have reviewed the chart and agree that the record accurately reflects my personal performance of the history, physical exam, medical decision making, and the department course for this patient. I have also personally directed, reviewed, and agree with the discharge instructions and disposition. Physician Patient Turnover Patient Signed Over To: Kishan Holloway Handoff Comments: please dispo per Crisis Evaluators- U-tox pending.
[2018-01-05 18:44] LABS: BARBITURATES, UR NEGATIVE (NEGATIVE); BENZODIAZEPINES, UR NEGATIVE (NEGATIVE); OPIATES, UR NEGATIVE (NEGATIVE); PHENCYCLIDINE, UR NEGATIVE (NEGATIVE)
[2018-01-05 18:50] LABS: URINE BILIRUBIN NEGATIVE (NEGATIVE); URINE BLOOD NEGATIVE (NEGATIVE); URINE CLARITY Clear (Clear); URINE COLOR Yellow (YELLOW); URINE GLUCOSE (UA) NORMAL (Normal); URINE LEUKOCYTE ESTERASE NEG Leu/uL (Negative); URINE PROTEIN NEGATIVE (NEGATIVE); URINE UROBILINOGEN NORMAL mg/dL (0.2-1.0)
--- NOTE | 2018-01-05 20:22 | PCM.BM ---
<Mary Shearer - Last Filed: 01/05/18 20:20> Treatment Plan Problems - Problems identified on initial assessmt Depression Date Initiated: 01/05/18 Time Initiated: 20:20 Assessment reference: NA Status: Active Suicidal Ideation Date Initiated: 01/05/18 Time Initiated: 20:20 Assessment reference: NA Status: Active Treatment assets and liabiliti Patient Assests: adapts well, cooperative, ADL independent, physically healthy, good support system, negotiates basic needs, cognitively intact Patient Liabilities: live alone (long-term), physical pain, financial problems , poor support system, substance abuse (ETOH, BAL 212 on admission), medical problems (High cholesterol) - Milieu Protocol Maintain good personal hygiene: daily Encourage regular showers, daily Remind patient to perform daily oral care, daily Assist patient to perform ADL's (Self) Conduct patient checks and document Observation sheet: Q15 minutes (Safety) Maintain personal safety: every shift Educate patient to report safety concerns to staff, every shift Monitor environment for contraband/sharps Medication safety: Monitor for expected outcome, potential side effects: every shift, Assess barriers to learning: every shift, Assess readiness for medication education: every shift <Kayla Higuera - Last Filed: 01/08/18 15:51> Family Contact Family involvement: Patient does not wish Family/SO involvement Family contact: Patient declines to allow family contact at present - Goals for Treatment Patient goals for treatment: " I want to go back [facility]." Discharge/Continuing Care - Education Needs Education Needs: Patient Medication, Patient Diagnosis/Disease Process, Patient Coping Skills, Patient Anger Management skills - Discharge Discharge Criteria: Free of Suicidal thoughts, No longer exhibiting s/s of withdrawal, Reduction of target symptoms Discharge to:: [facility] - Treatment Team Participation Discussed with Family/SO: No Was Patient/Family/SO present at Treatment Team Meeting: Yes <Mook Mcclain - Last Filed: 01/12/18 11:22> - Diagnosis (1) Schizoaffective disorder Status: Acute Interventions: 01/12/18 11:22 * Assess/adjust medications daily and /or as needed * See patient on an individual basis 7x/week to assess status of hallucinations * Discuss risks, benefits, side effects and alternatives of medications *
--- NOTE | 2018-01-06 11:44 | PCM.PSYCH ---
Initial Psychiatric Evaluation - Initial Psychiatric Evaluation Type of Admission: Voluntary Legal Status: Capacity Chief Complaint (in patient's own words): "I'm fine now" History of Present Illness and Precipitating Events: The patient is seen, chart reviewed and case discussed. He is known from previous admission. This is a 42-year-old male, single with no child, living in a [facility]. The patient was discharged to the [facility] not long ago and now sent back because he was getting agitated, drinking alcohol and getting more psychotic; hearing voices, feeling paranoid. He also insinuated suicidal remarks recently. The patient currently is very evasive and guarded and he claims he is ready to go back. He states he is here just because he drank "2 beers" and that he is "fine" now. However, he looks internally preoccupied and has a blunted affect and thought disorder. He also told our staff that he "hated" the ch[facility], chores and other patients there. However he was compliant with meds. He goes to [facility] He had used drugs in the past, but again he is evasive about that and currently he denies using any but alcohol. Past psych history: Schizoaffective disorder (or schizophrenia) and many psych admissions Family psych history: None known Medical history: Obese Current Medications: Active Medications Generic Name Dose Route Start Last Admin Trade Name Freq PRN Reason Stop Dose Admin Acetaminophen 650 mg 01/05/18 23:49 01/06/18 00:08 Tylenol 325mg Tab PO 650 mg Q6 PRN Administration Pain, Mild (1-3) Hydroxyzine HCl 25 mg 01/05/18 23:52 Atarax PO Q6 PRN Anxiety [place] Carbonate 300 mg 01/06/18 10:00 01/06/18 10:19 [place] Carbonate 300mg PO 300 mg DAILY VASU Administration Quetiapine Fumarate 300 mg 01/06/18 22:00 Seroquel PO HS VASU Trazodone HCl 100 mg 01/06/18 09:41 Desyrel PO HS PRN Insomnia Past Psychiatric History - Past Psychiatric History Previous Treatment History: Inpatient Pertinent Medical Hx (Current Medical&Sleep Prob, Allergies): Allergies Allergy/AdvReac Type Severity Reaction Status Date / Time divalproex sodium Allergy Verified 12/05/17 08:35 [From Depakote] FISH Allergy Verified 01/05/18 15:09 haloperidol [From Haldol] Allergy Verified 12/05/17 08:35 haloperidol lactate Allergy Verified 12/05/17 08:35 [From Haldol] risperidone [From Risperdal] Allergy Verified 12/05/17 08:35 ziprasidone HCl [From Geodon] Allergy Verified 12/05/17 08:35 ziprasidone mesylate Allergy Verified 12/05/17 08:35 [From Geodon] Citalopram [celEXA] 20 mg PO DAILY #30 tab 07/04/17 traZODone [Desyrel] 50 mg PO HS #30 tab 07/04/17 Citalopram [celEXA] 40 mg PO DAILY #30 tab 12/19/17 [place] Carbonate [[place] Carbonate 300MG] 300 mg PO DAILY #30 cap 12/19/17 [place] Carbonate [[place] Carbonate 300MG] 600 mg PO HS #60 cap 12/19/17 QUEtiapine [Seroquel] 300 mg PO HS #30 tab 12/19/17 Benztropine [Cogentin] 1 mg PO BID 01/05/18 Clonazepam 0.5 mg PO BID 01/05/18 Docusate Sodium [Colace] 100 mg PO BID 01/05/18 Famotidine [Pepcid] 20 mg PO BID 01/05/18 Review of Systems - Psychiatric Psychiatric: Abnormal Sleep Pattern, Anhedonia, Anxiety, Difficulty Concentrating, Hallucinations, Irritability, Paranoia. absent: Homicidal Ideation, Suicidal Ideation Mental Status Examination - Personal Presentation Personal Presentation: Looks stated age - Affect Affect: Constricted - Motor Activity Motor Activity: Calm - Reliability in Providing Information Reliability in Providing Information: Poor, due to alteration in thoughts - Speech Speech: Organized - Mood Mood: Depressed, Anxious - Formal Thought Process Formal Thought Process: Hallucinations - Cognitive Functions Orientation: Person, Place, Situation, Time Sensorium: Alert Attention/Concentration: Easily distracted Abstract Thinking: [place] Judgement: Imparied, as evidence by: Poor judgement Memory: Recent intact, as evidence by: Ability to recall events of the day, Remote impaired as evidenced by: Inability to recall sig life events - Risk Risk: Diminished functioning - Strength & Assets Inventory Strength & Assets Inventory: Cooperative - Limitations Limitations: Living alone, Other DSM 5 DX - DSM 5 DSM 5 Diagnosis: Schizophrenia, chronic - with acute exacerbation Alcohol use d/o - severe Cannabis use d/o- in early remission - Recommended/Plan of Treatment Treatment Recommendations and Plan of Treatment: Resume [place] and seroquel Increase seroquel to 400 mg Gabapentin for augmentation and alcohol Contact GH and MCG As needed medications All risks, benefits and alternatives of the meds discussed, and the pt agreed and understood. Attend groups and activities Supportive therapy and psychoeducation [place] for abstinence Smoking cessation with [place] Nicotine patch if needed 34 min Projected ELOS: 7 days Prognosis: good w treatment - Smoking Cessation Smoking Cessation Initiated: Yes
--- NOTE | 2018-01-07 11:44 | PCM.PYCHPN ---
Psychiatric Progress Note - Psychiatric Progress Note Patient seen today, length of contact: 16 min Patient Chief Complaint: "I'm OK" Problems Identified/Issues Discussed: The pt is seen, chart reviewed, case discussed with staff. The pt is compliant with medications and reports no side-effects. Symptoms are improving but needs more time to stabilize. He is still very isolative and concrete, odd, paranoid. After care discussed, support and psychoeducation given. Medication Change: Yes Medical Record Reviewed: Yes Mental Status Examination - Cognitive Function Orientation: Person, Place, Situation, Time Memory: Impaired Attention: Poor Concentration: Poor Association: Loose Fund of Knowledge: Poor - Mood Mood: Depressed, Anxious - Affect Affect: Constricted - Speech Speech: Appropriate (monotonous) - Formal Thought Process Formal Thought Process: Hallucinations - Suicidal Ideation Suicidal Ideation: No - Homicidal Ideation Homicidal Ideation: No Goal/Treatment Plan - Goal/Treatment Plan Need for Continued Stay: Discharge may exacerbated symptoms, Severe functional impairment Progress Toward Problem(s) and Goals/Treatment Plan: Resume [place] and seroquel Increase seroquel to 400 mg Gabapentin for augmentation and alcohol Contact GH and MCG As needed medications All risks, benefits and alternatives of the meds discussed, and the pt agreed and understood. Attend groups and activities Supportive therapy and psychoeducation [place] for abstinence Smoking cessation with [place] Nicotine patch if needed
--- NOTE | 2018-01-08 10:16 | PCM.PYCHPN ---
Psychiatric Progress Note - Psychiatric Progress Note Patient seen today, length of contact: 16 min Patient Chief Complaint: I was mad.' Problems Identified/Issues Discussed: Patient seen and evaluated, chart reviewed and discussed with the nurse. Patient remained disorganized and still appears internally preoccupied and angry. Although he denies any AVH, but he appears paranoid and delusional. Patient remained isolated, confined and withdrawn. Patient is compliant with medications and denies any side effects. Symptoms are slowly improving and he need more time to stabilize. Support and psychoeducation given. Medication Change: Yes Medical Record Reviewed: Yes Mental Status Examination - Cognitive Function Orientation: Person, Place, Situation, Time Memory: Intact Attention: WNL Concentration: Poor Association: Loose Fund of Knowledge: WNL - Mood Mood: Depressed, Anxious - Affect Affect: Constricted - Formal Thought Process Formal Thought Process: Hallucinations - Suicidal Ideation Suicidal Ideation: No - Homicidal Ideation Homicidal Ideation: No Goal/Treatment Plan - Goal/Treatment Plan Need for Continued Stay: Severe depression anxiety, Severe functional impairment Progress Toward Problem(s) and Goals/Treatment Plan: Schizoaffective disorder bipolar type CBT Psychoeducation Supportive therapy, group therapy, individual therapy Start Prolixin 5 mg PO BID Seroquel 100 mg PO Daily Seroquel 300 mg PO QHS Neurontin 100 mg by mouth 3 times a day Trazodone 100 mg by mouth daily at bedtime [place] 300 mg PO Daily [place] 600 mg PO QHS
--- NOTE | 2018-01-09 17:26 | PCM.PYCHPN ---
Psychiatric Progress Note - Psychiatric Progress Note Patient seen today, length of contact: 16 min Patient Chief Complaint: I am feeling anxious.;' Problems Identified/Issues Discussed: Patient seen and evaluated, chart reviewed and discussed with the nurse. Patient remained disorganized and still appears internally preoccupied and angry. Although he denies any AVH, but he appears paranoid and delusional. Patient remained isolated, confined and withdrawn. Patient is compliant with medications and denies any side effects. Symptoms are slowly improving and he need more time to stabilize. Support and psychoeducation given. Medication Change: Yes Medical Record Reviewed: Yes Mental Status Examination - Cognitive Function Orientation: Person, Place, Situation, Time Memory: Impaired Attention: Poor Concentration: Poor Association: Loose Fund of Knowledge: Poor - Mood Mood: Depressed, Anxious - Affect Affect: Constricted - Speech Speech: Appropriate (monotonous) - Formal Thought Process Formal Thought Process: Hallucinations - Suicidal Ideation Suicidal Ideation: No - Homicidal Ideation Homicidal Ideation: No Goal/Treatment Plan - Goal/Treatment Plan Need for Continued Stay: Discharge may exacerbated symptoms, Severe functional impairment Progress Toward Problem(s) and Goals/Treatment Plan: Schizoaffective disorder bipolar type CBT Psychoeducation Supportive therapy, group therapy, individual therapy Start Prolixin 5 mg PO BID Seroquel 100 mg PO Daily Seroquel 300 mg PO QHS Neurontin 100 mg by mouth 3 times a day Trazodone 100 mg by mouth daily at bedtime [place] 300 mg PO Daily [place] 600 mg PO QHS
--- NOTE | 2018-01-10 14:45 | PCM.PYCHPN ---
Psychiatric Progress Note - Psychiatric Progress Note Patient seen today, length of contact: 16 min Patient Chief Complaint: I am amna.' Problems Identified/Issues Discussed: Patient seen and evaluated, chart reviewed and discussed with the nurse. Patient remained disorganized and still appears internally preoccupied and angry. Although he denies any AVH, but he appears paranoid and delusional. Patient remained isolated, confined and withdrawn. Patient is compliant with medications and denies any side effects. Symptoms are slowly improving and he need more time to stabilize. Support and psychoeducation given. Medication Change: Yes (start prolixin) Medical Record Reviewed: Yes Mental Status Examination - Cognitive Function Orientation: Person, Place, Situation, Time Memory: Impaired Attention: WNL Concentration: Poor Association: Loose Fund of Knowledge: Poor - Mood Mood: Depressed, Anxious - Affect Affect: Constricted - Speech Speech: Appropriate (monotonous) - Formal Thought Process Formal Thought Process: Hallucinations, Delusions, Paranoia, Loosening of associations - Suicidal Ideation Suicidal Ideation: No - Homicidal Ideation Homicidal Ideation: No Goal/Treatment Plan - Goal/Treatment Plan Need for Continued Stay: Discharge may exacerbated symptoms, Severe functional impairment Progress Toward Problem(s) and Goals/Treatment Plan: Schizoaffective disorder bipolar type CBT Psychoeducation Supportive therapy, group therapy, individual therapy Start Prolixin 5 mg PO BID D/C Seroquel 100 mg PO Daily Seroquel 300 mg PO QHS D/C Neurontin 100 mg by mouth 3 times a day Trazodone 100 mg by mouth daily at bedtime [place] 300 mg PO Daily [place] 600 mg PO QHS - Smoking Cessation Smoking Cessation Initiated: No
--- NOTE | 2018-01-11 14:24 | PCM.PYCHPN ---
Psychiatric Progress Note - Psychiatric Progress Note Patient seen today, length of contact: 16 min Patient Chief Complaint: I am amna.' Problems Identified/Issues Discussed: Patient seen and evaluated, chart reviewed and discussed with the nurse. Patient remained disorganized and still appears internally preoccupied and angry. Although he denies any AVH, but he appears paranoid and delusional. Patient remained isolated, confined and withdrawn. Patient is compliant with medications and denies any side effects. Symptoms are slowly improving and he need more time to stabilize. Support and psychoeducation given. Medication Change: Yes (Increase prolixin) Medical Record Reviewed: Yes Mental Status Examination - Cognitive Function Orientation: Person, Place, Situation, Time Memory: Impaired Attention: WNL Concentration: Poor Association: Loose Fund of Knowledge: Poor - Mood Mood: Depressed, Anxious - Affect Affect: Constricted - Speech Speech: Appropriate (monotonous) - Formal Thought Process Formal Thought Process: Hallucinations, Delusions, Paranoia, Loosening of associations - Suicidal Ideation Suicidal Ideation: No - Homicidal Ideation Homicidal Ideation: No Goal/Treatment Plan - Goal/Treatment Plan Need for Continued Stay: Discharge may exacerbated symptoms, Severe functional impairment Progress Toward Problem(s) and Goals/Treatment Plan: Schizoaffective disorder bipolar type CBT Psychoeducation Supportive therapy, group therapy, individual therapy Prolixin 5 mg PO daily Increase Prolixin 10 mg PO QHS Reduce Seroquel 200 mg PO QHS Trazodone 100 mg by mouth daily at bedtime [place] 300 mg PO Daily [place] 600 mg PO QHS
--- NOTE | 2018-01-13 00:55 | PCM.PYCHPN ---
Psychiatric Progress Note - Psychiatric Progress Note Patient seen today, length of contact: 16 min Patient Chief Complaint: I am feeling little better' Problems Identified/Issues Discussed: Patient seen and evaluated, chart reviewed and discussed with the nurse. Patient appear somewhat more organized and less internally preoccupied. He still appears angry and irritable. Although he denies any AVH, but he appears paranoid and delusional. Patient remained isolated, confined and withdrawn. Patient is compliant with medications and denies any side effects. Symptoms are slowly improving and he need more time to stabilize. Support and psychoeducation given. Medication Change: Yes (Increase prolixin) Medical Record Reviewed: Yes Mental Status Examination - Cognitive Function Orientation: Person, Place, Situation, Time Memory: Impaired Attention: WNL Concentration: Poor Association: Loose Fund of Knowledge: Poor - Mood Mood: Depressed, Anxious - Affect Affect: Constricted - Speech Speech: Appropriate (monotonous) - Formal Thought Process Formal Thought Process: Hallucinations, Delusions, Paranoia, Loosening of associations - Suicidal Ideation Suicidal Ideation: No - Homicidal Ideation Homicidal Ideation: No Goal/Treatment Plan - Goal/Treatment Plan Need for Continued Stay: Discharge may exacerbated symptoms, Severe functional impairment Progress Toward Problem(s) and Goals/Treatment Plan: Schizoaffective disorder bipolar type CBT Psychoeducation Supportive therapy, group therapy, individual therapy Prolixin 10 mg PO daily Prolixin 10 mg PO QHS Reduce Seroquel 200 mg PO QHS Trazodone 100 mg by mouth daily at bedtime [place] 300 mg PO Daily [place] 600 mg PO QHS
--- NOTE | 2018-01-13 19:15 | PCM.PYCHPN ---
Psychiatric Progress Note - Psychiatric Progress Note Patient seen today, length of contact: 15 minutes Patient Chief Complaint: I'm feeling restlessness and wants to move. Problems Identified/Issues Discussed: Patient seen, chart reviewed, case discussed with the staff. Issues related to illness and treatment were discussed with the patient and staff. Reported compliant with treatment with no adverse affects. Tolerating treatment very well. Feeling better with some restlessness in his legs and wants to move continuously. Will increase the dose of Cogentin. Aftercare discussed with the patient. At the time of evaluation, patient was awake alert oriented 3, had no delusions , no auditory or visual hallucinations, no suicidal ideations or homicidal ideations. Medical Problems: Obesity Diagnostic Results: Reviewed DSM 5 Symptoms Update: Some improvement with treatment Medication Change: No Medical Record Reviewed: Yes Mental Status Examination - Cognitive Function Orientation: Person, Place, Situation, Time Memory: Intact Attention: WNL Concentration: WNL Association: Loose Fund of Knowledge: WNL Decription of patient's judgement and insights: Fair - Mood Mood: Anxious - Affect Affect: Constricted - Speech Speech: Appropriate (monotonous) - Formal Thought Process Formal Thought Process: Paranoia, Loosening of associations - Suicidal Ideation Suicidal Ideation: No - Homicidal Ideation Homicidal Ideation: No Goal/Treatment Plan - Goal/Treatment Plan Need for Continued Stay: Remain at risks for inpatient hospitalization, Discharge may exacerbated symptoms, Severe functional impairment Progress Toward Problem(s) and Goals/Treatment Plan: Some improvement with treatment. Patient education. Supportive therapy. We'll increase the dose of Cogentin to 1 mg 3 times a day from 1 mg 2 times a day. Continue rest of the treatment as before. Estimated Date of D/C: 01/15/18 - Smoking Cessation Smoking Cessation Initiated: No
--- NOTE | 2018-01-14 18:40 | PCM.PYCHPN ---
Psychiatric Progress Note - Psychiatric Progress Note Patient seen today, length of contact: 15 minutes Patient Chief Complaint: I'm feeling better. My racing thoughts and also less. Problems Identified/Issues Discussed: Patient seen, chart reviewed, case discussed with the staff. Issues related to illness and treatment were discussed with the patient and staff. Reported compliant with treatment with no adverse affects. Tolerating treatment very well. Feeling better, has less restlessness and his racing thoughts and also less. Will increase the dose of Cogentin further to 2 mg twice a day. Discussed with patient about risk and benefits of Cogentin. Patient understood and agreed. Aftercare discussed with the patient. At the time of evaluation, patient was awake alert oriented 3, had no delusions , no auditory or visual hallucinations, no suicidal ideations or homicidal ideations. Medical Problems: Obesity Diagnostic Results: Reviewed DSM 5 Symptoms Update: Improving with treatment Medication Change: Yes (Dose of Cogentin increased to 2 mg twice a day) Medical Record Reviewed: Yes Mental Status Examination - Cognitive Function Orientation: Person, Place, Situation, Time Memory: Intact Attention: WNL Concentration: WNL Association: WNL Fund of Knowledge: [facility] Decription of patient's judgement and insights: Fair - Mood Mood: Anxious (Less than before) - Affect Affect: Other (Appropriate) - Speech Speech: Appropriate (monotonous) - Formal Thought Process Formal Thought Process: Paranoia (Less than before) - Suicidal Ideation Suicidal Ideation: No - Homicidal Ideation Homicidal Ideation: No Goal/Treatment Plan - Goal/Treatment Plan Need for Continued Stay: Remain at risks for inpatient hospitalization, Discharge may exacerbated symptoms, Severe functional impairment Progress Toward Problem(s) and Goals/Treatment Plan: Some improvement with treatment. Patient education. Supportive therapy. We'll increase the dose of Cogentin to 2 mg twice a day. Continue rest of the treatment as before. Estimated Date of D/C: 01/15/18 - Smoking Cessation Smoking Cessation Initiated: No
--- NOTE | 2018-01-15 11:06 | PCM.BM ---
<Kayla Higuera - Last Filed: 01/15/18 11:05> Treatment Plan Problems - Problems identified on initial assessmt Depression Date Initiated: 01/05/18 Time Initiated: 20:20 Assessment reference: NA Status: Active Suicidal Ideation Date Initiated: 01/05/18 Time Initiated: 20:20 Assessment reference: NA Status: Active Treatment assets and liabiliti Patient Assests: adapts well, cooperative, ADL independent, physically healthy, good support system, negotiates basic needs, cognitively intact Patient Liabilities: live alone (jail), physical pain, financial problems , poor support system, substance abuse (ETOH, BAL 212 on admission), medical problems (High cholesterol) - Milieu Protocol Maintain good personal hygiene: daily Encourage regular showers, daily Remind patient to perform daily oral care, daily Assist patient to perform ADL's (Self) Conduct patient checks and document Observation sheet: Q15 minutes (Safety) Maintain personal safety: every shift Educate patient to report safety concerns to staff, every shift Monitor environment for contraband/sharps Medication safety: Monitor for expected outcome, potential side effects: every shift, Assess barriers to learning: every shift, Assess readiness for medication education: every shift Milieu Narrative: Some improvement with treatment. Patient education. Supportive therapy. We'll increase the dose of Cogentin to 2 mg twice a day. Continue rest of the treatment as before. Family Contact Family involvement: Patient does not wish Family/SO involvement Family contact: Patient declines to allow family contact at present - Goals for Treatment Patient goals for treatment: " I want to go back [facility]." Discharge/Continuing Care - Education Needs Education Needs: Patient Medication, Patient Diagnosis/Disease Process, Patient Coping Skills, Patient Anger Management skills - Discharge Discharge Criteria: Free of Suicidal thoughts, No longer exhibiting s/s of withdrawal, Reduction of target symptoms Discharge to:: [facility] - Treatment Team Participation Patient/Family/SO Statement: Some improvement with treatment. Patient education. Supportive therapy. We'll increase the dose of Cogentin to 2 mg twice a day. Continue rest of the treatment as before. Discussed with Family/SO: No Was Patient/Family/SO present at Treatment Team Meeting: Yes Treatment Plan Review - Problem Depression Time Initiated: 20:20 Suicidal Ideation Time Initiated: 20:20 - Discharge / Continuing Care Discharge to:: [facility] hospital Health Needs: Follow up care/test, Medications/Rx <Mook Mcclain - Last Filed: 01/17/18 11:12> - Diagnosis (1) Schizoaffective disorder Status: Acute Interventions: 01/17/18 11:11 * Assess/adjust medications daily and /or as needed * See patient on an individual basis 7x/week to assess status of hallucinations * Discuss risks, benefits, side effects and alternatives of medications *
--- NOTE | 2018-01-15 14:25 | PCM.PYCHPN ---
Psychiatric Progress Note - Psychiatric Progress Note Patient seen today, length of contact: 15 minutes Patient Chief Complaint: I am feeling little better' Problems Identified/Issues Discussed: Patient seen and evaluated, chart reviewed and discussed with the nurse. Patient appear somewhat more organized and less internally preoccupied. He still appears angry and irritable. Although he denies any AVH, but he appears paranoid and delusional. Patient remained isolated, confined and withdrawn. Patient is compliant with medications and denies any side effects. Symptoms are slowly improving and he need more time to stabilize. Support and psychoeducation given. Medication Change: Yes (Dose of Cogentin increased to 2 mg twice a day) Medical Record Reviewed: Yes Mental Status Examination - Cognitive Function Orientation: Person, Place, Situation, Time Memory: Intact Attention: WNL Concentration: WNL Association: WNL Fund of Knowledge: WNL - Mood Mood: Anxious (Less than before) - Affect Affect: Other (Appropriate) - Speech Speech: Appropriate (monotonous) - Formal Thought Process Formal Thought Process: Paranoia (Less than before) - Suicidal Ideation Suicidal Ideation: No - Homicidal Ideation Homicidal Ideation: No Goal/Treatment Plan - Goal/Treatment Plan Need for Continued Stay: Remain at risks for inpatient hospitalization, Discharge may exacerbated symptoms, Severe functional impairment Progress Toward Problem(s) and Goals/Treatment Plan: Schizoaffective disorder bipolar type CBT Psychoeducation Supportive therapy, group therapy, individual therapy Prolixin 10 mg PO daily Prolixin 10 mg PO QHS Reduce Seroquel 200 mg PO QHS Trazodone 100 mg by mouth daily at bedtime [place] 300 mg PO Daily [place] 600 mg PO QHS Estimated Date of D/C: 01/15/18
[2018-01-15 16:52] LABS: BASO % 0.5 % (0.0-2.0); EOS # 0.2 K/uL (0.0-0.7); LYMPH # 2.9 K/uL (1.0-4.3); LYMPH % 34.3 % (20.0-40.0); MEAN CELL VOLUME 89.8 fL (80.0-94.0); MEAN CORPUSCULAR HGB CONC 34.5 g/dL (33.0-37.0); MEAN PLATELET VOLUME 6.6 fL (7.2-11.7); MONO # 0.7 K/uL (0.0-0.8); MONO % 8.8 % (0.0-10.0); NEUT # 4.5 K/uL (1.8-7.0); NEUT % 54.4 % (50.0-75.0); NRBC % 0.1 % (0.0-2.0); RBC 5.18 Mil/uL (4.40-5.90); RED CELL DISTRIBUTION WIDTH 13.5 % (11.5-14.5); WHITE BLOOD COUNT 8.3 K/uL (4.8-10.8)
[2018-01-16 06:39] VITALS: TEMP 98.2; O2SAT 100
--- NOTE | 2018-01-16 14:00 | PCM.PYCHPN ---
Psychiatric Progress Note - Psychiatric Progress Note Patient seen today, length of contact: 15 minutes Patient Chief Complaint: I am feeling little better' Problems Identified/Issues Discussed: Patient seen and evaluated, chart reviewed and discussed with the nurse. Patient appear somewhat more organized and less internally preoccupied. He still appears angry and irritable. Although he denies any AVH, but he appears paranoid and delusional. Patient remained isolated, confined and withdrawn. Patient is compliant with medications and denies any side effects. Symptoms are slowly improving and he need more time to stabilize. Support and psychoeducation given. Medication Change: Yes (dc prolixin) Medical Record Reviewed: Yes Mental Status Examination - Cognitive Function Orientation: Person, Place, Situation, Time Memory: Intact Attention: WNL Concentration: WNL Association: WNL Fund of Knowledge: WNL - Mood Mood: Anxious (Less than before) - Affect Affect: Other (Appropriate) - Speech Speech: Appropriate (monotonous) - Formal Thought Process Formal Thought Process: Paranoia (Less than before) - Suicidal Ideation Suicidal Ideation: No - Homicidal Ideation Homicidal Ideation: No Goal/Treatment Plan - Goal/Treatment Plan Need for Continued Stay: Remain at risks for inpatient hospitalization, Discharge may exacerbated symptoms, Severe functional impairment Progress Toward Problem(s) and Goals/Treatment Plan: Schizoaffective disorder bipolar type CBT Psychoeducation Supportive therapy, group therapy, individual therapy Prolixin 10 mg PO daily Prolixin 10 mg PO QHS Reduce Seroquel 200 mg PO QHS Trazodone 100 mg by mouth daily at bedtime [place] 300 mg PO Daily [place] 600 mg PO QHS Estimated Date of D/C: 01/15/18
[2018-01-17 06:23] VITALS: BP 145/83; PULSE 99; RESP 19
--- NOTE | 2018-01-17 11:18 | PCM.PYCHDC ---
Mental Status Examination - Mental Status Examination Orientation: Person, Place, Situation, Time Memory: Intact Mood: Neutral Affect: Constricted Speech: Soft Attention: WNL Concentration: WNL Association: WNL Fund of Knowledge: WNL Formal Thought Process: No Impairment Description of patient's judgement and insight: good, fair Psychotic Thoughts and Behaviors: denies any AVH Suicidal Ideation: No Current Homicidal Ideation?: No Discharge Summary - Discharge Note Consultations:: List each consultation separately and include: 1. Reason for request. 2. Findings. 3. Follow-up Summary of Hospital Course include:: 1. Description of specific treatment plan utilized for patients during their course of treatmen. 2. Summarize the time- course for resolution of acute symptoms and/or regressed behaviors. 3. Describe issues identified and worked on during hospitalization. 4. Describe medication utilized. 5. Describe medical problems identified and treated. 6. Reassessment of suicide risk - Diagnosis (1) Schizoaffective disorder Current Visit: No Status: Acute - Final Diagnosis (DSM 5) Condition upon Discharge: GOOD Disposition: HOME/ ROUTINE Follow-up Treatment Plan: Schizoaffective disorder bipolar type CBT Psychoeducation Supportive therapy, group therapy, individual therapy Start Prolixin 5 mg PO BID Seroquel 100 mg PO Daily Seroquel 300 mg PO QHS Neurontin 100 mg by mouth 3 times a day Trazodone 100 mg by mouth daily at bedtime [place] 300 mg PO Daily [place] 600 mg PO QHS Prescriptions/Medication Reconciliation: [place] Carbonate [[place] Carbonate 300MG] 600 mg PO BID #60 cap QUEtiapine [SEROquel] 200 mg PO HS #30 tab
== END 2018-01-17 11:53 | disposition home or self-care (01) | DRG 430 ==
LOC: C.ER 14:54 → C.5E 20:02
PROVIDERS: ADMIT Psychiatry & Neurology Psychiatry; ATTEND Psychiatry & Neurology Psychiatry
PROC: GZHZZZZ Group Psychotherapy (ICD-10-PCS; principal; 2018-01-05)
PROC: GZ58ZZZ Individual Psychotherapy, Cognitive-Behavioral (ICD-10-PCS; 2018-01-05)
PROC: GZ56ZZZ Individual Psychotherapy, Supportive (ICD-10-PCS; 2018-01-05)
DX: F25.0 Schizoaffective disorder, bipolar type (principal); E66.9 Obesity, unspecified; Z68.37 Body mass index [BMI] 37.0-37.9, adult; E78.00 Pure hypercholesterolemia, unspecified; F12.90 Cannabis use, unspecified, uncomplicated; I10 Essential (primary) hypertension; J45.909 Unspecified asthma, uncomplicated; R45.851 Suicidal ideations; G47.00 Insomnia, unspecified

== ENCOUNTER 2018-02-15 18:48 | Inpatient (IN) | payer MEDICAID ==
[2018-02-15 18:49] VITALS: BMI 39.1
--- NOTE | 2018-02-15 19:23 | C.PDOC ---
Chief Complaint (Nursing): Psychiatric Evaluation Past Medical History Vital Signs: Last Vital Signs Temp 99.2 F 02/15/18 18:55 Pulse 82 02/15/18 18:55 Resp 18 02/15/18 18:55 BP 130/86 02/15/18 18:55 Pulse Ox 98 02/15/18 18:55 - Medical History PMH: Anxiety, Asthma, Bipolar Disorder, Depression, HTN, Hypercholesterolemia, Paranoia, Schizophrenia Denies: Cardia Arrhythmia, CHF, Diabetes, Hepatitis, HIV, Mitral Valve Prolapse, Peripheral Edema, Personality Disorder, Post Traumatic Stress Disorder , Chronic Kidney Disease, Seizures, Sexually Transmitted Disease Surgical History: Pacemaker Denies: Coronary Stent - [facility] Procedures GROUP PSYCHOTHERAPY (01/25/18) INDIVID PSYCHOTHERAP NEC (03/04/14) INDIVIDUAL PSYCHOTHERAPY, COGNITIVE-BEHAVIORAL (01/25/18) INDIVIDUAL PSYCHOTHERAPY, SUPPORTIVE (01/05/18) INJECT/INFUSE NEC (03/31/13) NEBULIZER THERAPY (03/31/13) OTHER GROUP THERAPY (02/01/14) Family History: States: Unknown Family Hx - Social History Hx Tobacco Use: No Hx 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
--- NOTE | 2018-02-15 19:27 | C.PDOC ---
History Of Present Illness 42 y/o male presents to the ED for psychiatric evaluation due to complaints of hearing voices. Patient reports he has not been thinking straight for the past few months. Otherwise he denies any suicidal or homicidal ideation. Time Seen by Provider: 02/15/18 19:20 Chief Complaint (Nursing): Psychiatric Evaluation History Per: Patient History/Exam Limitations: no limitations Onset/Duration Of Symptoms: Days Current Symptoms Are (Timing): Still Present Past Medical History Reviewed: Historical Data, Nursing Documentation, Vital Signs Vital Signs: Last Vital Signs Temp 99.2 F 02/15/18 18:55 Pulse 82 02/15/18 18:55 Resp 18 02/15/18 18:55 BP 130/86 02/15/18 18:55 Pulse Ox 98 02/15/18 19:29 - Medical History PMH: Anxiety, Asthma, Bipolar Disorder, Depression, HTN, Hypercholesterolemia, Paranoia, Schizophrenia Denies: Cardia Arrhythmia, CHF, Diabetes, Hepatitis, HIV, Mitral Valve Prolapse, Peripheral Edema, Personality Disorder, Post Traumatic Stress Disorder , Chronic Kidney Disease, Seizures, Sexually Transmitted Disease Surgical History: Pacemaker Denies: Coronary Stent - [facility] Procedures GROUP PSYCHOTHERAPY (01/25/18) INDIVID PSYCHOTHERAP NEC (03/04/14) INDIVIDUAL PSYCHOTHERAPY, COGNITIVE-BEHAVIORAL (01/25/18) INDIVIDUAL PSYCHOTHERAPY, SUPPORTIVE (01/05/18) INJECT/INFUSE NEC (03/31/13) NEBULIZER THERAPY (03/31/13) OTHER GROUP THERAPY (02/01/14) Family History: States: Unknown Family Hx - Social History Hx Tobacco Use: No Hx 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 Constitutional: Negative for: Fever Cardiovascular: Negative for: Chest Pain Respiratory: Negative for: Shortness of Breath Gastrointestinal: Negative for: Vomiting Psych: Positive for: Other (Hearing voices). Negative for: Suicidal ideation ( or homicidal) Physical Exam - Physical Exam Appears: Non-toxic, No Acute Distress Skin: Normal Color, Warm, Dry Head: Atraumatic, Normacephalic Eye(s): bilateral: Normal Inspection, PERRL, EOMI Oral Mucosa: Moist Neck: Normal ROM Chest: Symmetrical Cardiovascular: Rhythm Regular, No Murmur Respiratory: Normal Breath Sounds, No Rales, No Rhonchi, No Wheezing Gastrointestinal/Abdominal: Soft, No Tenderness Extremity: Bilateral: Atraumatic, Normal Color And Temperature, Normal ROM Neurological/Psych: Oriented x3, Normal Speech ED Course And Treatment - Laboratory Results Result Diagrams: 02/15/18 19:44 02/15/18 19:44 O2 Sat by Pulse Oximetry: 98 Medical Decision Making Medical Decision Making: Impression: Auditory hallucinations Initial Plan: --Alcohol serum --UDS --CMP --CBC --Urinalysis --Crisis will see patient Disposition Discussed With DrMehran: Mook Mcclain Doctor Will See Patient In The: Hospital Counseled Patient/Family Regarding: Diagnosis - Disposition Disposition: HOSPITALIZED Disposition Time: 22:19 Condition: STABLE Forms: [facility] (Ivorian) - POA Present On Arrival: None - Clinical Impression Clinical Impression: Schizoaffective disorder - Scribe Statement The provider has reviewed the documentation as recorded by the Scribe (Edda Castano) Provider Attestation: All medical record entries made by the Scribe were at my direction and personally dictated by me. I have reviewed the chart and agree that the record accurately reflects my personal performance of the history, physical exam, medical decision making, and the department course for this patient. I have also personally directed, reviewed, and agree with the discharge instructions and disposition.
[2018-02-15 19:49] LABS: BASO # 0.1 K/uL (0.0-0.2); BASO % 0.9 % (0.0-2.0); EOS # 0.2 K/uL (0.0-0.7); EOS % 2.4 % (0.0-4.0); HEMOGLOBIN 14.7 g/dL (12.0-18.0); LYMPH # 2.9 K/uL (1.0-4.3); LYMPH % 38.3 % (20.0-40.0); MEAN CELL VOLUME 90.9 fL (80.0-94.0); MEAN CORPUSCULAR HEMOGLOBIN 31.2 pg (27.0-31.0); MEAN CORPUSCULAR HGB CONC 34.4 g/dL (33.0-37.0); MEAN PLATELET VOLUME 6.7 fL (7.2-11.7); MONO # 0.5 K/uL (0.0-0.8); MONO % 7.1 % (0.0-10.0); NEUT # 3.9 K/uL (1.8-7.0); NEUT % 51.3 % (50.0-75.0); NRBC % 0.1 % (0.0-2.0); RBC 4.71 Mil/uL (4.40-5.90); RED CELL DISTRIBUTION WIDTH 14.2 % (11.5-14.5); WHITE BLOOD COUNT 7.5 K/uL (4.8-10.8)
[2018-02-15 20:10] LABS: ALB/GLOB RATIO 1.3 (1.0-2.1); ALBUMIN 4.5 g/dL (3.5-5.0); ALT/SGPT 37 U/L (21-72); AST/SGOT 24 U/L (17-59); BLOOD UREA NITROGEN 10 mg/dL (9-20); CALCIUM 9.5 mg/dl (8.6-10.4); GFR AFRICAN-AMERICAN > 60; GFR NON-AFRICAN AMERICAN > 60
[2018-02-15 20:40] LABS: SQUAMOUS EPITHIAL < 1 /hpf (0-5); URINE BILIRUBIN NEGATIVE (NEGATIVE); URINE BLOOD NEGATIVE (NEGATIVE); URINE CLARITY Hazy (Clear); URINE COLOR Yellow (YELLOW); URINE GLUCOSE (UA) NORMAL (Normal); URINE LEUKOCYTE ESTERASE NEG Leu/uL (Negative); URINE PROTEIN NEGATIVE (NEGATIVE); URINE UROBILINOGEN NORMAL mg/dL (0.2-1.0)
[2018-02-15 20:53] LABS: BARBITURATES, UR NEGATIVE (NEGATIVE); BENZODIAZEPINES, UR NEGATIVE (NEGATIVE); OPIATES, UR NEGATIVE (NEGATIVE); PHENCYCLIDINE, UR NEGATIVE (NEGATIVE)
--- NOTE | 2018-02-15 22:57 | PCM.BM ---
<Tejas Blue - Last Filed: 02/15/18 22:55> Treatment Plan Problems - Problems identified on initial assessmt Auditory hallucinations Date Initiated: 02/15/18 Time Initiated: 22:56 Assessment reference: NA Status: Active Anxiety Date Initiated: 02/15/18 Time Initiated: 22:56 Assessment reference: NA Status: Active Treatment assets and liabiliti Patient Assests: adapts well, cooperative, ADL independent, physically healthy, negotiates basic needs, cognitively intact Patient Liabilities: live alone (Lives in assisted), medical problems (Obesity ) - Milieu Protocol Maintain good personal hygiene: daily Encourage regular showers, daily Remind patient to perform daily oral care, every shift Assist patient to perform ADL's Conduct patient checks and document Observation sheet: Q15 minutes (For safety) Maintain personal safety: every shift Educate patient to report safety concerns to staff, every shift Monitor environment for contraband/sharps Medication safety: Monitor for expected outcome, potential side effects: every shift, Assess barriers to learning: every shift, Assess readiness for medication education: every shift <Mook Mcclain - Last Filed: 02/16/18 10:52> - Diagnosis (1) Schizoaffective disorder Status: Acute Interventions: 02/16/18 10:52 * Assess/adjust medications daily and /or as needed * See patient on an individual basis 7x/week to assess status of hallucinations * Discuss risks, benefits, side effects and alternatives of medications * <Iva Barajas - Last Filed: 02/16/18 13:20> Family Contact Family involvement: Famliy/SO not involved - Goals for Treatment Patient goals for treatment: "I need a new outpatient program." Discharge/Continuing Care - Education Needs Education Needs: Patient Medication, Patient Coping Skills - Discharge Discharge Criteria: Tolerates medication w/o severe side effects, Reduction of target symptoms Discharge to:: [facility] - Treatment Team Participation Discussed with Family/SO: No Was Patient/Family/SO present at Treatment Team Meeting: Yes
--- NOTE | 2018-02-16 09:39 | PCM.PSYCH ---
Initial Psychiatric Evaluation - Initial Psychiatric Evaluation Type of Admission: Voluntary Legal Status: Capacity Chief Complaint (in patient's own words): I was not feeling good.' History of Present Illness and Precipitating Events: The patient is a 42 year old HM, S, unemployed, who presents to the ED for auditory hallucinations. Write is familiar with the patient. He has a history of schizoaffective disorder and he lives in a correction. He been to [facility] multiple times. He was recently discharged almost few week ago. As per the collaterals, pt became gradually disorganized and paranoid. He started hearing voices and became internally preoccupied. Yesterday, he came to the ED to get help. He reports that "My brain is clogged." He reports depressed mood and feelings of hopelessness and helplessness. He appeared partially mute, and agitated. He appeared responding to internal stimuli. The patient remained a poor historian. He appeared to be agitated, guarded, and had flat affect. The patient had limited eye contact and his speech was tangential. PMH: Heartburn Current Medications: Active Medications Generic Name Dose Route Start Last Admin Trade Name Freq PRN Reason Stop Dose Admin Trazodone HCl 100 mg 02/15/18 23:30 02/15/18 23:47 Desyrel PO 100 mg HS VASU Administration Past Psychiatric History - Past Psychiatric History Previous Treatment History: Inpatient Pertinent Medical Hx (Current Medical&Sleep Prob, Allergies): Allergies Allergy/AdvReac Type Severity Reaction Status Date / Time divalproex sodium Allergy RASH Verified 01/25/18 15:18 [From Depakote] FISH Allergy RASH Verified 01/25/18 15:18 haloperidol [From Haldol] Allergy RASH Verified 01/25/18 15:18 haloperidol lactate Allergy RASH Verified 01/25/18 15:18 [From Haldol] risperidone [From Risperdal] Allergy RASH Verified 01/25/18 15:18 ziprasidone HCl [From Geodon] Allergy RASH Verified 01/25/18 15:18 ziprasidone mesylate Allergy RASH Verified 01/25/18 15:18 [From Geodon] Docusate Sodium [Colace] 100 mg PO BID #60 capsule 02/01/18 Famotidine [Pepcid] 20 mg PO BID #60 tab 02/01/18 [place] Carbonate [[place] Carbonate 300MG] 600 mg PO BID #120 cap 02/01/18 QUEtiapine [SEROquel] 400 mg PO HS #60 tab 02/01/18 traZODone [Desyrel] 50 mg PO HS #30 tab 02/01/18 Review of Systems - Review of Systems All systems: reviewed and no additional remarkable complaints except - Psychiatric Psychiatric: Anxiety, Auditory Hallucinations, Depression, Irritability, Paranoia Mental Status Examination - Personal Presentation Personal Presentation: Looks stated age - Affect Affect: Constricted, Depressed - Motor Activity Motor Activity: Psychomotor Agitation - Reliability in Providing Information Reliability in Providing Information: Poor, due to alteration in thoughts, Poor , due to altered mood - Speech Speech: Disorganized - Mood Mood: Depressed, Anxious - Formal Thought Process Formal Thought Process: Hallucinations, Delusions, Paranoia, Loosening of associations - Hallucinations/Delusions Hallucinations: Auditory Delusions: Persecution - Obsessions/Compulsions Obsessions: No Compulsions: No - Cognitive Functions Orientation: Person, Place, Situation, Time Sensorium: Alert Attention/Concentration: Attentive Abstract Thinking: [place] Estimate of Intelligence: Below average Judgement: Imparied, as evidence by: Poor judgement, Imparied, as evidence by: Lack of insight into illness - Risk Risk: Suicidal, Diminished functioning - Limitations Limitations: Living alone, Other (correction) DSM 5 DX - DSM 5 DSM 5 Diagnosis: Schizoaffective disorder depressive type - Recommended/Plan of Treatment Treatment Recommendations and Plan of Treatment: Schizoaffective disorder depressive type CBT Psychoeducation Supportive therapy, group therapy Trazodone 100 mg by mouth daily at bedtime [place] 600 mg PO BID Seroquel 400 mg P OQHS
--- NOTE | 2018-02-17 16:11 | PCM.PYCHPN ---
Psychiatric Progress Note - Psychiatric Progress Note Patient seen today, length of contact: 16 minutes Patient Chief Complaint: "I'm hearing voices" Problems Identified/Issues Discussed: The pt is seen, chart reviewed, case discussed with staff. Ot stated that he is still hears voices, non command type. He contracted hospital for safety. He still has depressive symptoms. However, he reported improvement in SI, intent and plan. The pt is compliant with medications and reports no side-effects. Symptoms are improving but needs more time to stabilize. After care discussed, support and psychoeducation given. Medication Change: No Mental Status Examination - Cognitive Function Orientation: Person, Place, Situation, Time Memory: Intact Attention: WNL Concentration: Poor Association: Loose Fund of Knowledge: WNL Decription of patient's judgement and insights: improving/improving - Mood Mood: Depressed, Anxious - Affect Affect: Constricted, Depressed - Speech Speech: Appropriate - Formal Thought Process Formal Thought Process: Hallucinations, Delusions, Paranoia, Loosening of associations Psychotic Thoughts and Behaviors: +ve AH - Suicidal Ideation Suicidal Ideation: No Plan: denied - Homicidal Ideation Homicidal Ideation: No Plan: denied Goal/Treatment Plan - Goal/Treatment Plan Need for Continued Stay: Severe depression anxiety, Discharge may exacerbated symptoms, Severe functional impairment Progress Toward Problem(s) and Goals/Treatment Plan: Continue medications Support and psychoeducation daily Attend groups and activities daily After care planning by MARIBEL - Smoking Cessation Smoking Cessation Initiated: Yes
--- NOTE | 2018-02-18 14:18 | PCM.PYCHPN ---
Psychiatric Progress Note - Psychiatric Progress Note Patient seen today, length of contact: 16 minutes Patient Chief Complaint: "I'm hearing voices" Problems Identified/Issues Discussed: The pt is seen, chart reviewed, case discussed with staff. Pt is still isolated to himself and attend selective activities. He stated that he is still hears voices, non command type. He contracted hospital for safety. He still has depressive symptoms. However, he reported improvement in SI, intent and plan. The pt is compliant with medications and reports no side-effects. Symptoms are improving but needs more time to stabilize. After care discussed, support and psychoeducation given. Medication Change: No Medical Record Reviewed: Yes Mental Status Examination - Cognitive Function Orientation: Person, Place, Situation, Time Memory: Intact Attention: WNL Concentration: Poor Association: Loose Fund of Knowledge: WNL Decription of patient's judgement and insights: improving/improving - Mood Mood: Depressed, Anxious - Affect Affect: Constricted, Depressed - Speech Speech: Appropriate - Formal Thought Process Formal Thought Process: Hallucinations, Delusions, Paranoia, Loosening of associations Psychotic Thoughts and Behaviors: +ve AH - Suicidal Ideation Suicidal Ideation: No Plan: denied - Homicidal Ideation Homicidal Ideation: No Plan: denied Goal/Treatment Plan - Goal/Treatment Plan Need for Continued Stay: Severe depression anxiety, Discharge may exacerbated symptoms, Severe functional impairment Progress Toward Problem(s) and Goals/Treatment Plan: Continue medications Support and psychoeducation daily Attend groups and activities daily After care planning by MARIBEL - Smoking Cessation Smoking Cessation Initiated: Yes
--- NOTE | 2018-02-19 22:49 | PCM.PYCHPN ---
Psychiatric Progress Note - Psychiatric Progress Note Patient seen today, length of contact: 16 minutes Patient Chief Complaint: I was not feeling good.' Medication Change: No Medical Record Reviewed: Yes Mental Status Examination - Cognitive Function Orientation: Person, Place, Situation, Time Memory: Intact Attention: WNL Concentration: Poor Association: Loose Fund of Knowledge: WNL - Mood Mood: Depressed, Anxious - Affect Affect: Constricted, Depressed - Speech Speech: Appropriate - Formal Thought Process Formal Thought Process: Hallucinations, Delusions, Paranoia, Loosening of associations - Suicidal Ideation Suicidal Ideation: No - Homicidal Ideation Homicidal Ideation: No Goal/Treatment Plan - Goal/Treatment Plan Need for Continued Stay: Severe depression anxiety, Discharge may exacerbated symptoms, Severe functional impairment Progress Toward Problem(s) and Goals/Treatment Plan: Schizoaffective disorder depressive type CBT Psychoeducation Supportive therapy, group therapy Trazodone 100 mg by mouth daily at bedtime [place] 600 mg PO BID Seroquel 400 mg P OQHS
--- NOTE | 2018-02-23 10:07 | PCM.BM ---
<Crystal Barajasy - Last Filed: 02/23/18 10:07> Treatment Plan Problems - Problems identified on initial assessmt Auditory hallucinations Date Initiated: 02/15/18 Time Initiated: 22:56 Assessment reference: NA Status: Active Anxiety Date Initiated: 02/15/18 Time Initiated: 22:56 Assessment reference: NA Status: Active Treatment assets and liabiliti Patient Assests: adapts well, cooperative, ADL independent, physically healthy, negotiates basic needs, cognitively intact Patient Liabilities: live alone (Lives in correction), medical problems (Obesity ) - Milieu Protocol Maintain good personal hygiene: daily Encourage regular showers, daily Remind patient to perform daily oral care, every shift Assist patient to perform ADL's Conduct patient checks and document Observation sheet: Q15 minutes (For safety) Maintain personal safety: every shift Educate patient to report safety concerns to staff, every shift Monitor environment for contraband/sharps Medication safety: Monitor for expected outcome, potential side effects: every shift, Assess barriers to learning: every shift, Assess readiness for medication education: every shift Milieu Narrative: Schizoaffective disorder depressive type CBT Psychoeducation Supportive therapy, group therapy Trazodone 100 mg by mouth daily at bedtime [place] 600 mg PO BID Seroquel 400 mg P OQHS Family Contact Family involvement: Famliy/SO not involved - Goals for Treatment Patient goals for treatment: "I need a new outpatient program." Discharge/Continuing Care - Education Needs Education Needs: Patient Medication, Patient Coping Skills - Discharge Discharge Criteria: Tolerates medication w/o severe side effects, Reduction of target symptoms Discharge to:: [facility] - Treatment Team Participation Patient/Family/SO Statement: Schizoaffective disorder depressive type CBT Psychoeducation Supportive therapy, group therapy Trazodone 100 mg by mouth daily at bedtime [place] 600 mg PO BID Seroquel 400 mg P OQHS Discussed with Family/SO: No Was Patient/Family/SO present at Treatment Team Meeting: Yes Treatment Plan Review - Problem Auditory hallucinations Time Initiated: :56 Anxiety Time Initiated: 22:56 - Discharge / Continuing Care Discharge to:: [facility] Services: Adult day care Health Needs: Medications/Rx, Recreational/Social, Alcohol/Drug treatment <Mook Mcclain - Last Filed: 02/26/18 10:14> - Diagnosis (1) Schizoaffective disorder Status: Acute Interventions: 02/26/18 10:13 * Assess/adjust medications daily and /or as needed * See patient on an individual basis 7x/week to assess status of hallucinations * Discuss risks, benefits, side effects and alternatives of medications *
[2018-02-24 06:37] VITALS: O2SAT 96
--- NOTE | 2018-02-24 12:01 | PCM.PYCHPN ---
Psychiatric Progress Note - Psychiatric Progress Note Patient seen today, length of contact: 15 minutes Patient Chief Complaint: "I was not feeling good." Problems Identified/Issues Discussed: Pt was seen and evaluated at bedside. During the exam he remained in bed with his arm covering his head and reported that he did not feel any better from yesterday. He continues to express depressive symptoms. Patient continues to remain isolated from the rest of the floor without much interaction. Medication Change: No Medical Record Reviewed: Yes Mental Status Examination - Cognitive Function Orientation: Person, Place, Situation, Time Memory: Intact Attention: WNL Concentration: Poor Association: Loose Fund of Knowledge: WNL - Mood Mood: Depressed, Anxious - Affect Affect: Constricted, Depressed - Speech Speech: Appropriate - Formal Thought Process Formal Thought Process: Hallucinations, Delusions, Paranoia, Loosening of associations - Suicidal Ideation Suicidal Ideation: No - Homicidal Ideation Homicidal Ideation: No Goal/Treatment Plan - Goal/Treatment Plan Need for Continued Stay: Severe depression anxiety, Discharge may exacerbated symptoms, Severe functional impairment Progress Toward Problem(s) and Goals/Treatment Plan: Schizoaffective disorder depressive type CBT Psychoeducation Supportive therapy, group therapy Trazodone 100 mg by mouth daily at bedtime [place] 600 mg PO BID Seroquel 400 mg P OQHS
[2018-02-25 06:58] VITALS: RESP 20
[2018-02-26 06:45] VITALS: BP 104/67; PULSE 74; TEMP 97.6
--- NOTE | 2018-02-26 10:19 | PCM.PYCHDC ---
Mental Status Examination - Mental Status Examination Orientation: Person, Place, Situation, Time Memory: Intact Mood: Neutral Affect: Constricted Speech: Soft Attention: WNL Concentration: WNL Association: WNL Fund of Knowledge: WNL Formal Thought Process: No Impairment Description of patient's judgement and insight: good, fair Psychotic Thoughts and Behaviors: denies any AVH Suicidal Ideation: No Current Homicidal Ideation?: No Discharge Summary - Discharge Note Reason for Hospitalization: The patient is a 42 year old HM, S, unemployed, who presents to the ED for auditory hallucinations. Write is familiar with the patient. He has a history of schizoaffective disorder and he lives in a assisted. He been to [facility] multiple times. He was recently discharged almost few week ago. As per the collaterals, pt became gradually disorganized and paranoid. He started hearing voices and became internally preoccupied. Yesterday, he came to the ED to get help. He reports that "My brain is clogged." He reports depressed mood and feelings of hopelessness and helplessness. He appeared partially mute, and agitated. He appeared responding to internal stimuli. The patient remained a poor historian. He appeared to be agitated, guarded, and had flat affect. The patient had limited eye contact and his speech was tangential. Consultations:: List each consultation separately and include: 1. Reason for request. 2. Findings. 3. Follow-up Summary of Hospital Course include:: 1. Description of specific treatment plan utilized for patients during their course of treatmen. 2. Summarize the time- course for resolution of acute symptoms and/or regressed behaviors. 3. Describe issues identified and worked on during hospitalization. 4. Describe medication utilized. 5. Describe medical problems identified and treated. 6. Reassessment of suicide risk Summary of Hospital Course: The patient is a 42 year old HM, S, unemployed, who presents to the ED for auditory hallucinations. [place] is familiar with the patient. He has a history of schizoaffective disorder and he lives in a assisted. He been to [facility] multiple times. He was recently discharged almost few week ago. As per the collaterals, pt became gradually disorganized and paranoid. He started hearing voices and became internally preoccupied. Yesterday, he came to the ED to get help. He reports that "My brain is clogged." He reports depressed mood and feelings of hopelessness and helplessness. He appeared partially mute, and agitated. He appeared responding to internal stimuli. The patient remained a poor historian. He appeared to be agitated, guarded, and had flat affect. The patient had limited eye contact and his speech was tangential. PMH: Heartburn - Diagnosis (1) Schizoaffective disorder Current Visit: Yes Status: Acute - Final Diagnosis (DSM 5) Condition upon Discharge: STABLE Disposition: HOME/ ROUTINE Follow-up Treatment Plan: Schizoaffective disorder depressive type CBT Psychoeducation Supportive therapy, group therapy Trazodone 100 mg by mouth daily at bedtime [place] 600 mg PO BID Seroquel 400 mg P OQHS Prescriptions/Medication Reconciliation: [place] Carbonate [[place] Carbonate 300MG] 300 mg PO BID #120 cap QUEtiapine [SEROquel] 200 mg PO HS #60 tab traZODone [Desyrel] 100 mg PO HS #30 tab
== END 2018-02-26 11:00 | disposition home or self-care (01) | DRG 430 ==
LOC: C.ER 18:48 → C.5E 22:19
PROVIDERS: ADMIT Psychiatry & Neurology Psychiatry; ATTEND Psychiatry & Neurology Psychiatry
PROC: GZ56ZZZ Individual Psychotherapy, Supportive (ICD-10-PCS; principal; 2018-02-15)
DX: F25.1 Schizoaffective disorder, depressive type (principal); I10 Essential (primary) hypertension; J45.909 Unspecified asthma, uncomplicated; F17.200 Nicotine dependence, unspecified, uncomplicated; E78.00 Pure hypercholesterolemia, unspecified; E66.9 Obesity, unspecified; Z68.39 Body mass index [BMI] 39.0-39.9, adult

== ENCOUNTER 2018-02-28 12:02 | Inpatient (IN) | payer MEDICAID ==
[2018-02-28 12:03] VITALS: BMI 39.1
[2018-02-28 12:40] LABS: BASO # 0.1 K/uL (0.0-0.2); BASO % 0.7 % (0.0-2.0); EOS # 0.1 K/uL (0.0-0.7); EOS % 1.7 % (0.0-4.0); HEMOGLOBIN 14.6 g/dL (12.0-18.0); LYMPH # 2.3 K/uL (1.0-4.3); LYMPH % 28.7 % (20.0-40.0); MEAN CELL VOLUME 91.2 fL (80.0-94.0); MEAN CORPUSCULAR HEMOGLOBIN 30.8 pg (27.0-31.0); MEAN CORPUSCULAR HGB CONC 33.8 g/dL (33.0-37.0); MEAN PLATELET VOLUME 6.8 fL (7.2-11.7); MONO # 0.6 K/uL (0.0-0.8); MONO % 7.5 % (0.0-10.0); NEUT % 61.4 % (50.0-75.0); RBC 4.73 Mil/uL (4.40-5.90); RED CELL DISTRIBUTION WIDTH 14.5 % (11.5-14.5); WHITE BLOOD COUNT 8.1 K/uL (4.8-10.8)
[2018-02-28 12:44] LABS: URINE BILIRUBIN NEGATIVE (NEGATIVE); URINE BLOOD NEGATIVE (NEGATIVE); URINE CLARITY Clear (Clear); URINE COLOR Yellow (YELLOW); URINE GLUCOSE (UA) NORMAL (Normal); URINE LEUKOCYTE ESTERASE NEG Leu/uL (Negative); URINE PROTEIN NEGATIVE (NEGATIVE); URINE UROBILINOGEN NORMAL mg/dL (0.2-1.0)
--- NOTE | 2018-02-28 12:54 | C.PDOC ---
History Of Present Illness 43 year old male patient with PMHx of shizoaffective, bipolar disorder [facility] SI/HI developed for past few days. Patient reports, he hears voices, unable to recall exact though. Pt denies any oethr active complaints. AT present time, pt appears awake, slightly anxious, racing thought but cooperative. Time Seen by Provider: 02/28/18 12:09 Chief Complaint (Nursing): Psychiatric Evaluation History Per: Patient History/Exam Limitations: no limitations Onset/Duration Of Symptoms: Days (x2 ) Past Medical History Reviewed: Historical Data, Nursing Documentation, Vital Signs Vital Signs: Last Vital Signs Temp 98.4 F 02/28/18 14:59 Pulse 74 02/28/18 14:59 Resp 18 02/28/18 14:59 BP 101/67 02/28/18 14:59 Pulse Ox 97 02/28/18 14:59 - Medical History PMH: Anxiety, Asthma, Bipolar Disorder, Depression, HTN, Hypercholesterolemia, Paranoia, Schizophrenia Surgical History: Pacemaker - [facility] Procedures GROUP PSYCHOTHERAPY (01/25/18) INDIVID PSYCHOTHERAP NEC (03/04/14) INDIVIDUAL PSYCHOTHERAPY, COGNITIVE-BEHAVIORAL (01/25/18) INDIVIDUAL PSYCHOTHERAPY, SUPPORTIVE (02/15/18) INJECT/INFUSE NEC (03/31/13) NEBULIZER THERAPY (03/31/13) OTHER GROUP THERAPY (02/01/14) Family History: States: Unknown Family Hx - Social History Hx Tobacco Use: No Hx 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 Constitutional: Negative for: Fever, Chills ENT: Negative for: Throat Pain Cardiovascular: Negative for: Chest Pain, Palpitations Respiratory: Negative for: Cough, Shortness of Breath Gastrointestinal: Negative for: Nausea, Vomiting, Abdominal Pain, Diarrhea Genitourinary: Negative for: Incontinence Musculoskeletal: Negative for: Neck Pain Skin: Negative for: Rash Neurological: Negative for: Seizures, Altered Mental Status Psych: Positive for: Suicidal ideation, Other (homicidal ideation) Physical Exam - Physical Exam Appears: Well, Non-toxic, No Acute Distress Skin: Normal Color, Warm, Dry, No Ecchymosis Head: Normacephalic Eye(s): bilateral: PERRL Nose: No Flaring, No Discharge Oral Mucosa: Moist Throat: No Drooling Neck: Trachea Midline, No Midline Cervical Tenderness, No Paracervical Tenderness, Supple Chest: Symmetrical, No Deformity, No Tenderness Cardiovascular: Rhythm Regular, No Murmur, No JVD Respiratory: No Decreased Breath Sounds, No Accessory Muscle Use, No Stridor, No Wheezing Gastrointestinal/Abdominal: Soft, No Tenderness, No Distention, No Guarding Back: No CVA Tenderness Extremity: Normal ROM (x4), No Pedal Edema, Capillary Refill (<2 sec), No Swelling Neurological/Psych: Oriented x3, Normal Speech, Normal Motor, Normal Sensation, Normal Reflexes Gait: Steady ED Course And Treatment - Laboratory Results Result Diagrams: 02/28/18 12:34 02/28/18 12:34 Lab Interpretation: Normal O2 Sat by Pulse Oximetry: 97 (RA) Pulse Ox Interpretation: Normal Progress Note: Impression: SI/HI. Plan: -- drug screen. -- blood work. -- UA. Reassess: On re-eval, pt is afebrile, hemodynamically stable. Non-toxic. PulseOx 97% on RA. AAO#3, copperative and appropriate. Neurologically intact. Blood work review and appears noraml. Pt is medically clared for PES evaluation. Pt was evaluated by PES and case discussed with on-call psych and admission arrnaged. Disposition - Disposition Disposition: HOSPITALIZED Disposition Time: 14:00 Condition: STABLE - Clinical Impression Clinical Impression: Schizoaffective disorder, bipolar type - PA / FOLLOW UP REP / Resident Statement / has reviewed & agrees with the documentation as recorded. - Scribe Statement The provider has reviewed the documentation as recorded by the [place] Do All medical record entries made by the Brayanibsaeed were at my direction and personally dictated by me. I have reviewed the chart and agree that the record accurately reflects my personal performance of the history, physical exam, medical decision making, and the department course for this patient. I have also personally directed, reviewed, and agree with the discharge instructions and disposition.
[2018-02-28 13:01] LABS: ALB/GLOB RATIO 1.2 (1.0-2.1); ALBUMIN 4.3 g/dL (3.5-5.0); ALT/SGPT 31 U/L (21-72); AST/SGOT 18 U/L (17-59); BLOOD UREA NITROGEN 9 mg/dL (9-20); CALCIUM 9.4 mg/dl (8.6-10.4); GFR AFRICAN-AMERICAN > 60; GFR NON-AFRICAN AMERICAN > 60
[2018-02-28 13:14] LABS: BARBITURATES, UR NEGATIVE (NEGATIVE); BENZODIAZEPINES, UR NEGATIVE (NEGATIVE); OPIATES, UR NEGATIVE (NEGATIVE); PHENCYCLIDINE, UR NEGATIVE (NEGATIVE)
--- NOTE | 2018-02-28 16:36 | PCM.BM ---
<Griselda Macdonald - Last Filed: 02/28/18 16:34> Treatment Plan Problems - Problems identified on initial assessmt Auditory Hallucination Date Initiated: 02/28/18 Time Initiated: 15:55 Assessment reference: NA Status: Active Suicidal Ideation Date Initiated: 02/28/18 Time Initiated: 15:55 Assessment reference: NA Status: Active Treatment assets and liabiliti Patient Assests: adapts well, cooperative, ADL independent, physically healthy, negotiates basic needs, cognitively intact Patient Liabilities: medical problems - Milieu Protocol Maintain good personal hygiene: daily Encourage regular showers, daily Remind patient to perform daily oral care, every shift Assist patient to perform ADL's Conduct patient checks and document Observation sheet: Q15 minutes Maintain personal safety: every shift Educate patient to report safety concerns to staff, every shift Monitor environment for contraband/sharps Medication safety: Monitor for expected outcome, potential side effects: every shift, Assess barriers to learning: every shift, Assess readiness for medication education: every shift <Mook Mcclain - Last Filed: 03/05/18 10:34> - Diagnosis (1) Schizoaffective disorder, bipolar type Status: Acute Interventions: 03/05/18 10:33 * Assess/adjust medications daily and /or as needed * See patient on an individual basis 7x/week to assess status of hallucinations * Discuss risks, benefits, side effects and alternatives of medications *
--- NOTE | 2018-03-01 10:40 | PCM.PSYCH ---
Initial Psychiatric Evaluation - Initial Psychiatric Evaluation Type of Admission: Voluntary Legal Status: Capacity Chief Complaint (in patient's own words): I was feeling down.' History of Present Illness and Precipitating Events: Pt is a 43 year old, [place] male, with Hx of Schizoaffective bipolar disorder , [facility]. Pt has h/o multiple inpatient psychiatric hospitalizations, he was just discharged from [facility] 3 days ago. As per the patient, 'soon after the discharge from the hospital he started hearing voices telling him to hurt himself and hurt others at the [facility]. Pt reports that he is hearing voices for past two days. He appeared anxious and depressed. He was partially cooperative during the interview. He reports that he was taking medications, however, he appeared delusional and paranoid. He denies any suicidal ideation or any homicidal ideation. He denies any drinking or any substance abuse. PMH: Heart burn, constipation Current Medications: Active Medications Generic Name Dose Route Start Last Admin Trade Name Freq PRN Reason Stop Dose Admin Fluphenazine HCl 5 mg 02/28/18 17:02 Prolixin PO Q6H PRN Agitation Hydroxyzine HCl 25 mg 02/28/18 17:02 Atarax PO Q4H PRN Anxiety [place] Carbonate 300 mg 02/28/18 18:00 03/01/18 09:38 [place] Carbonate 300mg PO 300 mg TID VASU Administration Quetiapine Fumarate 200 mg 02/28/18 22:00 02/28/18 21:24 Seroquel PO 200 mg HS VASU Administration Trazodone HCl 100 mg 02/28/18 17:02 Desyrel PO HS PRN Insomnia Past Psychiatric History - Past Psychiatric History Previous Treatment History: Inpatient Pertinent Medical Hx (Current Medical&Sleep Prob, Allergies): Allergies Allergy/AdvReac Type Severity Reaction Status Date / Time divalproex sodium Allergy RASH Verified 02/28/18 12:31 [From Depakote] FISH Allergy RASH Verified 02/28/18 12:31 haloperidol [From Haldol] Allergy RASH Verified 02/28/18 12:31 haloperidol lactate Allergy RASH Verified 02/28/18 12:31 [From Haldol] risperidone [From Risperdal] Allergy RASH Verified 02/28/18 12:31 ziprasidone HCl [From Geodon] Allergy RASH Verified 02/28/18 12:31 ziprasidone mesylate Allergy RASH Verified 02/28/18 12:31 [From Geodon] Docusate Sodium [Colace] 100 mg PO BID #60 capsule 02/01/18 Famotidine [Pepcid] 20 mg PO BID #60 tab 02/01/18 traZODone [Desyrel] 50 mg PO HS #30 tab 02/01/18 [place] Carbonate [[place] Carbonate 300MG] 300 mg PO BID #120 cap 02/26/18 QUEtiapine [SEROquel] 200 mg PO HS #60 tab 02/26/18 traZODone [Desyrel] 100 mg PO HS #30 tab 02/26/18 Review of Systems - Review of Systems All systems: reviewed and no additional remarkable complaints except - Psychiatric Psychiatric: Anxiety, Auditory Hallucinations, Irritability, Paranoia Mental Status Examination - Personal Presentation Personal Presentation: Looks stated age - Affect Affect: Constricted, Depressed - Motor Activity Motor Activity: Calm - Reliability in Providing Information Reliability in Providing Information: Poor, due to alteration in thoughts, Poor , due to altered mood - Speech Speech: Organized - Mood Mood: Depressed, Anxious - Formal Thought Process Formal Thought Process: Hallucinations, Delusions, Paranoia, Loosening of associations - Hallucinations/Delusions Hallucinations: Auditory Delusions: Persecution - Obsessions/Compulsions Obsessions: No Compulsions: No - Cognitive Functions Orientation: Person, Place, Situation, Time Sensorium: Alert Attention/Concentration: Attentive Abstract Thinking: [place] Estimate of Intelligence: Below average Judgement: Imparied, as evidence by: Poor judgement, Imparied, as evidence by: Lack of insight into illness - Risk Risk: Suicidal, Homicidal, Diminished functioning - Limitations Limitations: Other (usp) DSM 5 DX - DSM 5 DSM 5 Diagnosis: Schizoaffective disorder bipolar type - Recommended/Plan of Treatment Treatment Recommendations and Plan of Treatment: Schizoaffective disorder bipolar type -CBT -Psychoeducation -Supportive therapy, group therapy -[place] 300 mg PO TID -Seroquel 300 mg PO QHS -Gabapentin for augmentation -Trazodone for insomnia -Hydroxyzine for anxiety - Smoking Cessation Smoking Cessation Initiated: No
--- NOTE | 2018-03-03 15:53 | PCM.PYCHPN ---
Psychiatric Progress Note - Psychiatric Progress Note Patient seen today, length of contact: 15 minutes Patient Chief Complaint: I'm still hearing voices but they are less than before. Problems Identified/Issues Discussed: Patient seen, chart reviewed, case discussed with the staff. Issues related to illness and treatment were discussed with the patient and staff. Reported compliant with treatment with no adverse affects. Tolerating treatment very well. Patient reported still hearing voices but they're less than before. We'll increase the dose of Seroquel to 300 mg from 200 mg at bedtime. Calm and cooperative. Mood reported as depressed. Affect appropriate. Aftercare discussed with the patient. Patient was awake, alert and oriented 3. Denied any delusions, auditory or visual hallucinations, suicidal ideations or homicidal ideations at the time of evaluation. Medical Problems: None reported Diagnostic Results: Reviewed DSM 5 Symptoms Update: Some improvement with treatment Medication Change: Yes (Dose of Seroquel increased to 300 mg at bedtime) Medical Record Reviewed: Yes Mental Status Examination - Cognitive Function Orientation: Person, Place, Situation, Time Memory: Intact Attention: WNL Concentration: WNL Association: [facility] Fund of Knowledge: [facility] Decription of patient's judgement and insights: Fair - Mood Mood: Depressed - Affect Affect: Depressed - Speech Speech: Appropriate - Formal Thought Process Formal Thought Process: Hallucinations (Still hearing voices but less than before) Psychotic Thoughts and Behaviors: None - Suicidal Ideation Suicidal Ideation: No - Homicidal Ideation Homicidal Ideation: No Goal/Treatment Plan - Goal/Treatment Plan Need for Continued Stay: Remain at risks for inpatient hospitalization, Discharge may exacerbated symptoms, Severe functional impairment Progress Toward Problem(s) and Goals/Treatment Plan: Patient education. Supportive therapy. We'll increase the dose of Seroquel to 300 mg at bedtime. Continue rest of the treatment as before. Estimated Date of D/C: 03/09/18 - Smoking Cessation Smoking Cessation Initiated: No
[2018-03-04 06:51] VITALS: O2SAT 96
--- NOTE | 2018-03-04 15:49 | PCM.PYCHPN ---
Psychiatric Progress Note - Psychiatric Progress Note Patient seen today, length of contact: 15 minutes Patient Chief Complaint: I'm not hearing any voices. I'm also feeling better. Problems Identified/Issues Discussed: Patient seen, chart reviewed, case discussed with the staff. Issues related to illness and treatment were discussed with the patient and staff. Reported compliant with treatment with no adverse affects. Tolerating treatment very well. Patient reported not hearing any voices now and also feeling better. Calm and cooperative. Mood reported as depressed. Affect appropriate. Aftercare discussed with the patient. Patient was awake, alert and oriented 3. Patient is feeling better. Needs more time for stabilization. Denied any delusions, auditory or visual hallucinations, suicidal ideations or homicidal ideations at the time of evaluation. Medical Problems: None reported Diagnostic Results: Reviewed DSM 5 Symptoms Update: Improving with treatment Medication Change: No Medical Record Reviewed: Yes Mental Status Examination - Cognitive Function Orientation: Person, Place, Situation, Time Memory: Intact Attention: WNL Concentration: WNL Association: [facility] Fund of Knowledge: [facility] Decription of patient's judgement and insights: Fair - Mood Mood: Depressed (Less than before) - Affect Affect: Depressed - Speech Speech: Appropriate - Formal Thought Process Formal Thought Process: No Impairment Psychotic Thoughts and Behaviors: None - Suicidal Ideation Suicidal Ideation: No - Homicidal Ideation Homicidal Ideation: No Goal/Treatment Plan - Goal/Treatment Plan Need for Continued Stay: Remain at risks for inpatient hospitalization, Discharge may exacerbated symptoms, Severe functional impairment Progress Toward Problem(s) and Goals/Treatment Plan: Patient education. Supportive therapy. Continue treatment as before. Estimated Date of D/C: 03/09/18 - Smoking Cessation Smoking Cessation Initiated: No
--- NOTE | 2018-03-04 23:40 | PCM.PYCHPN ---
Psychiatric Progress Note - Psychiatric Progress Note Patient seen today, length of contact: 15 minutes Patient Chief Complaint: I was feeling down.' Medication Change: No Medical Record Reviewed: Yes Mental Status Examination - Cognitive Function Orientation: Person, Place, Situation, Time - Mood Mood: Depressed, Anxious - Affect Affect: Constricted, Depressed - Speech Speech: Appropriate - Formal Thought Process Formal Thought Process: Hallucinations, Delusions, Paranoia, Loosening of associations - Suicidal Ideation Suicidal Ideation: No - Homicidal Ideation Homicidal Ideation: No Goal/Treatment Plan - Goal/Treatment Plan Need for Continued Stay: Remain at risks for inpatient hospitalization, Discharge may exacerbated symptoms, Severe functional impairment Progress Toward Problem(s) and Goals/Treatment Plan: Schizoaffective disorder bipolar type -CBT -Psychoeducation -Supportive therapy, group therapy -[place] 300 mg PO TID -Seroquel 300 mg PO QHS -Gabapentin for augmentation -Trazodone for insomnia -Hydroxyzine for anxiety Estimated Date of D/C: 03/09/18
[2018-03-05 06:25] VITALS: BP 115/73; PULSE 75; RESP 20; TEMP 97.8
--- NOTE | 2018-03-05 10:37 | PCM.PYCHDC ---
Mental Status Examination - Mental Status Examination Orientation: Person, Place, Situation, Time Memory: Intact Mood: Neutral Affect: Constricted Speech: Soft Attention: WNL Concentration: WNL Association: WNL Fund of Knowledge: WNL Formal Thought Process: No Impairment Description of patient's judgement and insight: good, fair Psychotic Thoughts and Behaviors: denies any AVH Suicidal Ideation: No Current Homicidal Ideation?: No Discharge Summary - Discharge Note Reason for Hospitalization: Pt is a 43 year old, [place] male, with Hx of Schizoaffective bipolar disorder , arrived from longterm for hearing voices. Pt has h/o multiple inpatient psychiatric hospitalizations, he was just discharged from [facility] 3 days ago. As per the patient, 'soon after the discharge from the hospital he started hearing voices telling him to hurt himself and hurt others at the longterm. Pt reports that he is hearing voices for past two days. He appeared anxious and depressed. He was partially cooperative during the interview. He reports that he was taking medications, however, he appeared delusional and paranoid. He denies any suicidal ideation or any homicidal ideation. He denies any drinking or any substance abuse. Consultations:: List each consultation separately and include: 1. Reason for request. 2. Findings. 3. Follow-up Summary of Hospital Course include:: 1. Description of specific treatment plan utilized for patients during their course of treatmen. 2. Summarize the time- course for resolution of acute symptoms and/or regressed behaviors. 3. Describe issues identified and worked on during hospitalization. 4. Describe medication utilized. 5. Describe medical problems identified and treated. 6. Reassessment of suicide risk Summary of Hospital Course: During the course of his stay, patient (pt) started progressively improving and he no longer remained irritable, depressed, and suicidal. His mood and anxiety symptoms were improved and he started attending groups and meetings and started socializing. Patient denied any feelings of hopelessness, helplessness, and worthlessness, denied any problem with the sleep or appetite, denied suicidal ideation or homicidal ideation. Pt denied any auditory or visual hallucinations. He denied any withdrawal symptoms. Pt was treated with medications along with supportive therapy, milieu therapy and group therapy. Some changes were made in his current medications and patient was discharged on following medications. He tolerated these medications very well and denied any side effects. - Diagnosis (1) Schizoaffective disorder, bipolar type Status: Acute - Final Diagnosis (DSM 5) Condition upon Discharge: STABLE DSM 5: Schizoaffective disorder bipolar type Disposition: HOME/ ROUTINE Follow-up Treatment Plan: Followup: He was discharged to follow-up with [facility] Education: Pt was educated and counseled about the risks and benefits of taking and not taking medications. Pt was educated and counseled about the risks of drinking and abusing drugs. Pt was educated and counseled to go to the ER or call 911 if pt develop suicidal ideation or homicidal ideation, worsening of symptoms or severe side effects of the meds. follow-up with [facility] Prescriptions/Medication Reconciliation: [place] Carbonate [[place] Carbonate 300MG] 300 mg PO TID #90 cap QUEtiapine [Seroquel] 100 mg PO HS #30 tab QUEtiapine [SEROquel] 200 mg PO HS #30 tab traZODone [Desyrel] 100 mg PO HS PRN #30 tab PRN Reason: Insomnia - Smoking Cessation Smoking Cessation Medication prescribed: No - Antipsychotic Medications Pt discharged on 2 or more routine antipsychotic medications: No
== END 2018-03-05 11:00 | disposition home or self-care (01) | DRG 430 ==
LOC: C.ER 12:02 → C.5E 14:01
PROVIDERS: ADMIT Psychiatry & Neurology Psychiatry; ATTEND Psychiatry & Neurology Psychiatry
DX: F25.0 Schizoaffective disorder, bipolar type (principal); F41.9 Anxiety disorder, unspecified; G47.00 Insomnia, unspecified; I10 Essential (primary) hypertension; J45.909 Unspecified asthma, uncomplicated; E78.00 Pure hypercholesterolemia, unspecified

== ENCOUNTER 2018-03-13 11:46 | Emergency (ER) | payer MEDICAID ==
[2018-03-13 11:46] VITALS: BMI 39.1
[2018-03-13 11:56] VITALS: O2SAT 97
[2018-03-13 12:41] LABS: BASO # 0.1 K/uL (0.0-0.2); BASO % 1.1 % (0.0-2.0); EOS # 0.1 K/uL (0.0-0.7); HEMOGLOBIN 15.4 g/dL (12.0-18.0); LYMPH # 2.2 K/uL (1.0-4.3); MEAN CELL VOLUME 91.6 fL (80.0-94.0); MEAN CORPUSCULAR HEMOGLOBIN 31.5 pg (27.0-31.0); MEAN CORPUSCULAR HGB CONC 34.4 g/dL (33.0-37.0); MEAN PLATELET VOLUME 7.1 fL (7.2-11.7); MONO # 0.4 K/uL (0.0-0.8); MONO % 6.1 % (0.0-10.0); NEUT # 4.3 K/uL (1.8-7.0); NEUT % 60.8 % (50.0-75.0); NRBC % 0.1 % (0.0-2.0); RBC 4.89 Mil/uL (4.40-5.90); RED CELL DISTRIBUTION WIDTH 13.7 % (11.5-14.5); WHITE BLOOD COUNT 7.1 K/uL (4.8-10.8)
--- NOTE | 2018-03-13 12:55 | C.PDOC ---
History Of Present Illness 43 y/o male patient with PMHx of schizophrenia and bipolar disorder presents to the ED with homicidal ideations and auditory hallucinations. Patient states that he has been hearing voices telling him to hurt others for the past 2-3 days , but has no plan. He notes having a disagreement at his longterm triggering homicidal ideation. Patient states, " I have racing thoughts and hear good and bad voices." He is currently taking Seroquel and is compliant with psychiatric medications. Denies suicidal ideation, nausea, vomiting, abdominal pain, diarrhea or recent drug use. Time Seen by Provider: 03/13/18 11:58 Chief Complaint (Nursing): Psychiatric Evaluation History Per: Patient History/Exam Limitations: no limitations Onset/Duration Of Symptoms: Days (2-3) Current Symptoms Are (Timing): Still Present Suicide/Self Injury Attempted (Context): None Modifying Factor(s): None Severity: Mild Associated Symptoms: Other ((+) Auditory Hallucinations (+) Homicidal Ideations) . denies: Suicidal Thoughts, Suicidal Plan Recent travel outside of the [place]: No Past Medical History Reviewed: Historical Data, Nursing Documentation, Vital Signs Vital Signs: Last Vital Signs Temp 98.9 F 03/13/18 11:50 Pulse 86 03/13/18 11:50 Resp 17 03/13/18 11:50 BP 130/83 03/13/18 11:50 Pulse Ox 97 03/13/18 13:11 - Medical History PMH: Anxiety, Asthma, Bipolar Disorder, Depression, HTN, Hypercholesterolemia, Paranoia, Schizophrenia Comment Only: Diabetes (Patient denied), Hepatitis (Patient denied), HIV ( Patient denied), Seizures (Patient denied), Sexually Transmitted Disease ( Patient denied) - [facility] Procedures GROUP PSYCHOTHERAPY (01/25/18) INDIVID PSYCHOTHERAP NEC (03/04/14) INDIVIDUAL PSYCHOTHERAPY, COGNITIVE-BEHAVIORAL (01/25/18) INDIVIDUAL PSYCHOTHERAPY, SUPPORTIVE (02/15/18) INJECT/INFUSE NEC (03/31/13) NEBULIZER THERAPY (03/31/13) OTHER GROUP THERAPY (02/01/14) Family History: States: Unknown Family Hx - Social History Hx Tobacco Use: No Hx Alcohol Use: Yes (LAST DRINK "3 YEARS AGO") Hx Substance Use: Yes (LAST USED "3 YEARS AGO") - Immunization History Hx Tetanus Toxoid Vaccination: No Hx Influenza Vaccination: No Hx Pneumococcal Vaccination: No Review Of Systems Constitutional: Negative for: Fever, Chills Cardiovascular: Negative for: Chest Pain Gastrointestinal: Negative for: Nausea, Vomiting, Abdominal Pain Psych: Positive for: Other (Homicidal ideations and auditory hallucinations ). Negative for: Psychosis, Suicidal ideation, Withdrawal Physical Exam - Physical Exam Appears: Non-toxic, No Acute Distress Skin: Warm, Dry, No Rash Head: Atraumatic, Normacephalic Eye(s): bilateral: PERRL, EOMI Oral Mucosa: Moist Neck: Supple Chest: No Tenderness Cardiovascular: Rhythm Regular, No Murmur Respiratory: No Rales, No Rhonchi, Other ( Clear to auscultation bilaterally) Gastrointestinal/Abdominal: Soft, No Tenderness, No Distention Back: No CVA Tenderness Extremity: No Calf Tenderness, No Swelling Neurological/Psych: Oriented x3, Other ( Alert, no gross focal deficit.) ED Course And Treatment - Laboratory Results Result Diagrams: 03/13/18 12:32 03/13/18 12:32 O2 Sat by Pulse Oximetry: 97 (RA) Pulse Ox Interpretation: Normal Medical Decision Making Medical Decision Making: Impression: 43 year old with homicidal ideation and auditory hallucinations Plan:Drug Screen, UA/labs. Pending crisis evaluation. [id number] pt seen by crisis, cleared by Dr Mcclain for discharge. pt with hematuria, will refer to urology/ Disposition Counseled Patient/Family Regarding: Diagnosis, Need For Followup - Disposition Referrals: Saad Abrams MD [Staff Provider] - Disposition: HOME/ ROUTINE Disposition Time: 13:34 Condition: GOOD Additional Instructions: Please follow up with Dr Abrams for blood in your urine. Follow up with your therapist as well. Return to ER for any worse symptoms. Instructions: Schizoaffective Disorder (DC), Blood in the Urine (Hematuria), Adult (DC) Forms: [facility] ([place]), General Discharge Instructions - Clinical Impression Clinical Impression: Schizoaffective disorder, Hematuria - PA / DEVELOPMENT TECHNOLOGIST / Resident Statement MD/DO has reviewed & agrees with the documentation as recorded. - Scribe Statement The provider has reviewed the documentation as recorded by the Scribe (Jerome Mora) All medical record entries made by the Scribe were at my direction and personally dictated by me. I have reviewed the chart and agree that the record accurately reflects my personal performance of the history, physical exam, medical decision making, and the department course for this patient. I have also personally directed, reviewed, and agree with the discharge instructions and disposition.
[2018-03-13 13:07] LABS: ALB/GLOB RATIO 1.3 (1.0-2.1); ALBUMIN 4.6 g/dL (3.5-5.0); ALT/SGPT 30 U/L (21-72); AST/SGOT 24 U/L (17-59); BLOOD UREA NITROGEN 8 mg/dL (9-20); CALCIUM 9.5 mg/dl (8.6-10.4); GFR NON-AFRICAN AMERICAN > 60
[2018-03-13 13:09] LABS: BARBITURATES, UR NEGATIVE (NEGATIVE); BENZODIAZEPINES, UR NEGATIVE (NEGATIVE); OPIATES, UR NEGATIVE (NEGATIVE); PHENCYCLIDINE, UR NEGATIVE (NEGATIVE)
[2018-03-13 13:11] LABS: URINE BILIRUBIN NEGATIVE (NEGATIVE); URINE BLOOD 1+ (NEGATIVE); URINE CLARITY Clear (Clear); URINE COLOR YELLOW (YELLOW); URINE GLUCOSE (UA) NEGATIVE (Normal); URINE LEUKOCYTE ESTERASE NEGATIVE Leu/uL (Negative); URINE PROTEIN NEGATIVE (NEGATIVE); URINE UROBILINOGEN 0.2 mg/dL (0.2-1.0)
[2018-03-13 14:01] VITALS: BP 131/81; PULSE 75; RESP 18; TEMP 98.5
== END 2018-03-13 17:07 | disposition home or self-care (01) ==
LOC: C.ER 11:46
DX: F25.9 Schizoaffective disorder, unspecified (principal); R31.9 Hematuria, unspecified; I10 Essential (primary) hypertension; E78.00 Pure hypercholesterolemia, unspecified; Z87.891 Personal history of nicotine dependence